=== PATIENT | male | born 1980 | race African-American/Black ===

== ENCOUNTER 2016-09-21 12:53 | Inpatient (IN) ==
[2016-09-21] MEDS ORDERED: SODIUM CHLORIDE 0.9% 1,000 ML IV STA (13:03)
[2016-09-21] MEDS ORDERED: HYDROmorphone 2 MG/1 ML VIAL IV STA ×2 (13:03→14:06)
[2016-09-21] MEDS ORDERED: ONDANSETRON 4 MG/2 ML VIAL IV STA (13:03)
[2016-09-21] MEDS ORDERED: ONDANSETRON 4 MG/2 ML VIAL ONE (13:09)
[2016-09-21] MEDS ORDERED: HYDROmorphone 2 MG/1 ML VIAL ONE ×2 (13:10→14:17)
[2016-09-21 13:26] LABS: Basophils # 0.1 10*3/uL (0.0-0.2); Basophils % 0.3 % (0.0-0.8); Eosinophils % 0.2 % (0.00-10.9); Hemoglobin 12.8 GM/DL (14.0-18.0); Immature Granulocytes % 0.6 %; Immature Granulocytes Absolute 0.09 #; Lymphocytes % 13.1 % (21.2-54.2); Mean Corpuscular HGB Conc 37.8 GM/DL (32-36); Mean Corpuscular Hemoglobin 36 PG (27-34); Mean Corpuscular Volume 95.2 FL (87-102); Mean Platelet Volume 11.3 FL (9.6-12.0); Monocytes # 0.8 10*3/uL (0.11-0.8); Monocytes % 5.3 % (1.7-12.7); Neutrophils # 12.4 10*3/uL (1.4-7.4); Neutrophils % 80.5 % (38.7-73.9); Platelet Count 262 T/CUMM (130-400); Red Blood Count 3.56 MC/CUMM (3.8-5.5); Red Cell Distribution Width 12.1 % (9.3-17.3); White Blood Count 15.5 T/CUMM (4-12)
[2016-09-21 13:27] LABS: Hematocrit 33.9 VOL% (42.0-52.0)
--- NOTE | 2016-09-21 14:09 | CT Report ---
History: Abdominal pain and pelvic pain. Nausea and vomiting Date: 09/21/2016 Study: CT abdomen and pelvis with IV contrast Comparison exam: Noncontrast CT July 24, 2016 Technique: Spiral CT sections were obtained from the lung bases to the pubic symphysis following 100 mL Omnipaque 350 IV. Total DLP measures 1355.2 mGy*cm. The CT exam was performed using one or more of the following dose reduction techniques: Automated exposure control, adjustment of the mA and/or kV according to patient size, or use of iterative reconstruction technique. CT abdomen: There is mild platelike subsegmental atelectasis in the right lower lobe. There is no evidence of pneumoperitoneum. There is no latanya bowel obstruction. There is moderate diffuse fatty infiltration of the liver. There is no focal hepatic mass. There is some equivocal mild peritoneal thickening at the perihepatic level. The spleen, adrenal glands, and kidneys appear normal. There is strandy and hazy inflammatory change in the anterior left pararenal region and anterior right pararenal region. There is some diffuse prominence and indistinctness of the head of the pancreas, with mild perihepatic inflammation. There is no abnormal biliary dilatation. The gallbladder is mildly distended and grossly unremarkable otherwise. There is no aortic aneurysm. There is a small periumbilical hernia containing only fat. The appendix is visualized and appears normal. CT pelvis: There is no soft tissue mass of the pelvis. There is a small fat-containing right inguinal hernia. Impression: Pancreatic enlargement and peripancreatic inflammation compatible with changes of acute pancreatitis. Fatty infiltration of the liver PROCEDURE INTERPRETED AT [facility] DEPARTMENT OF RADIOLOGY Final Report Signed by: Dr. Tonia Price
--- NOTE | 2016-09-21 14:14 | XRay Report ---
History: Abdominal pain. Nausea and vomiting Date: 09/21/2016 Study: Chest x-ray AP portable Comparison exam: August 26, 2016 The cardiac silhouette is upper normal in size. There is no mediastinal mass. The pulmonary vasculature is not engorged. There is no acute pulmonary infiltrate. There is no gross pleural effusion. Osseous structures are unchanged. Impression: No acute cardiopulmonary process compared to the previous study PROCEDURE INTERPRETED AT [facility] [place] DEPARTMENT OF RADIOLOGY Final Report Signed by: Dr. Tonia Price
[2016-09-21 14:18] LABS: Calcium 9.9 MG/DL (8.5-10.1)
[2016-09-21 14:20] LABS: Albumin 4.2 G/DL (3.4-5.0); Osmolality,Calculated 277.2 MOS/KG (273-304)
[2016-09-21 14:33] LABS: Apearance,Urine CLEAR (Clear); Bilirubin,Urine Negative (Negative); Blood, Urine Small mg/dL (Negative); Glucose,Urine (UA) >=500 mg/dL (Negative); Ketones,Urine 80 mg/dL (Negative); Mucus,Urine Occasional /LPF (Occasional); Nitrite,Urine Negative (Negative); Protein,Urine 100 MG/DL; RBC,Urine 1 /HPF (0-4); Urine Color Yellow (Yellow); Urine Specific Gravity 1.051 (1.001-1.035); Urine Urobilinogen < 2.0 EU/DL (0.2-1.0); WBC,Urine 1 /HPF (0-6)
[2016-09-21 14:47] LABS: Bilirubin,Total 0.9 MG/DL (0.2-1.0); Total Protein 8.5 G/DL (6.4-8.3)
--- NOTE | 2016-09-21 15:08 | Emergency Department Note ---
Mac Francisco Brittany, am scribing for, and in the presence of, Russell Renee MD 13:07. Víctor Francisco Doug C, MD, personally performed the services described in this documentation, ascribed by Ruth Watts in my presence, and it is both accurate and complete . Arrival - Arrival Chief Complaint: Abdominal / Flank Pain Stated Complaint: abd pain' Mode of Arrival: Stretcher Limitations: No Limitations Source: Patient Time Seen by Provider: 09/21/16 13:02 - History of Present Illness HPI Narrative: Patient is a 35-year-old black male who presents to the emergency room complaining of abdominal pain for the last 2 days. Patient states his pain is progressively gotten worse and is very reminiscent that he experienced with acute pancreatitis in January 2016. States he only drinks an occasional beer at present. He has not had any fever or chills. Patient states she has been vomiting for the last several days but has not seen any blood in his vomitus and has had no melena. He denies any chest pain or shortness of breath. Onset (ago): week(s) (Started 2 weeks ago) Consistency: intermittent Allergies/Adverse Reactions: Allergies Allergy/AdvReac Type Severity Reaction Status Date / Time No Known Allergies Allergy Verified 09/10/16 07:35 Home Medications: Home Medications Medication Instructions Recorded Confirmed Type Carvedilol [Coreg] 3.125 mg PO BID tablet 03/05/16 09/21/16 Rx Fenofibrate [Tricor] 160 mg PO DAILY 03/28/16 09/21/16 History Metoclopramide Tab [Reglan Tab] 5 mg PO ACHS #40 tablet 08/22/16 09/21/16 Rx Dicyclomine Cap/Tab [Bentyl 20 mg PO QID PRN #20 tablet 08/24/16 09/21/16 Rx Cap/Tab] Ondansetron [Ondansetron Odt] 8 mg PO Q4H PRN #10 tab.rapdis 08/24/16 09/21/16 Rx Albuterol Sulfate [Ventolin HFA] 2 puff INH Q4H PRN 09/10/16 09/21/16 History Citalopram [CeleXA] 40 mg PO BEDTIME 09/10/16 09/21/16 History Divalproex Sodium 500 mg PO BID 09/10/16 09/21/16 History Pantoprazole Tab [Protonix Tab] 40 mg PO DAILY 09/10/16 09/21/16 History dilTIAZem HCl [Cartia XT] 240 mg PO BID 09/10/16 09/21/16 History ALPRAZolam [Xanax] 1 mg PO BID PRN 09/21/16 09/21/16 History Glimepiride 1 mg PO QAM 09/21/16 09/21/16 History Multivitamin with Minerals 1 each PO DAILY 09/21/16 09/21/16 History [Multivitamins with Minerals] Polyethylene Glycol Powder 17 gm PO DAILY 09/21/16 09/21/16 History [Miralax] metFORMIN [Glucophage] 500 mg PO BID 09/21/16 09/21/16 History Review of System - Review of System 12 point system: reviewed and no additional remarkable complaints except as stated - Review of System Constitutional: Absent: fever Respiratory: Present: cough Gastrointestinal: Present: abdominal pain, nausea, vomiting Hematological/Lymphatic: Absent: easy bleeding, easy bruising Medical,Surgical,& Family Hx - Medical History Cardio: History of: Hypertension Neurology: No history of: Seizures Endocrine: History of: Diabetes Mellitus (NIDDM), Dyslipidemia Respiratory: History of: Asthma, Bronchitis Gastrointestinal: History of: Hemorrhoids, Pancreatitis (In January 2016) Musculoskeletal: History of: Back/Neck Problems (back pain) - Surgical History Cardiac Surgeries: Patient Denies: Cardiac Catheterization HEENT Surgeries: Surgical HX of: Tonsilectomy & Adenoidectomy (tonsilectomy "years ago") Abdominal Surgeries: Surgical HX of: Abdominal Surgery (ABD ABSCESS) Additional Surgical History: Tracheostomy - Family History Family History: Reports;: Family Diabetes (mom), Family Hypertension (mom) Denies;: Family Heart Disease - Social History Smoking Status: Current every day smoker Exam Vital Signs: Vital Signs Temperature 96.8 F L 09/21/16 13:01 Pulse Rate 84 09/21/16 14:15 Respiratory Rate 22 09/21/16 14:15 Blood Pressure 131/77 09/21/16 14:15 O2 Sat by Pulse Oximetry 95 09/21/16 14:15 - General General appearance: alert, in distress (Patient appears quite uncomfortable.) - Head Head exam: Present: atraumatic, normocephalic, normal inspection - Eye Eye exam: Present: normal appearance, PERRL, EOMI. Absent: scleral icterus, conjunctival injection, nystagmus, miosis, mydriasis - ENT ENT exam: Present: normal exam, normal oropharynx, mucous membranes moist, normal external ear exam - Neck Neck exam: Present: normal inspection, full ROM, trachea midline. Absent: tenderness, meningismus, lymphadenopathy, thyromegaly - Chest Chest inspection: Present: normal inspection, symmetric chest wall rise. Absent : tenderness, rash, abscess - Respiratory Respiratory exam: Present: normal lung sounds bilaterally. Absent: prolonged expiratory phase, rales, respiratory distress, rhonchi, stridor, wheezes - Cardiovascular Cardiovascular exam: Present: normal rhythm, tachycardia, normal heart sounds. Absent: murmur, rubs, gallop, clicks, JVD - Abdominal Exam Abdominal exam: Present: soft, tenderness (Diffuse abdominal tendnerss), normal bowel sounds. Absent: distention, guarding, rebound, rigidity - Rectal Exam Rectal exam: Present: deferred - Extremities Exam Extremities exam: Present: normal inspection, full ROM, normal capillary refill. Absent: tenderness, pedal edema, joint swelling, calf tenderness - Back Exam Back exam: Present: normal inspection, full ROM. Absent: tenderness, muscle spasm, rashes - Neurological Exam Neurological exam: Present: alert, oriented X3, CN II-XII intact. Absent: motor sensory deficit - Psychiatric Psychiatric exam: Present: normal affect, normal mood. Absent: depressed, agitated, anxious, flat affect, manic - Skin Skin exam: Present: warm, dry, intact, normal color. Absent: rash, cyanosis, diaphoresis, erythema, pallor, mottled Course Course Narrative: Patient's clinical presentation, laboratory radiograph findings were discussed with Nathaniel who is covering the hospitalist service. She will arrange patient be seen in the emergency room and admitted. Results - Labs CBC & BMP: 09/21/16 13:06 09/21/16 13:06 Lab Results: I have reviewed the patients labs Labs: Laboratory Tests 09/21/16 09/21/16 09/21/16 13:03 13:06 13:18 WBC 15.5 H RBC 3.56 L Hgb 12.8 L Hct 33.9 L MCV 95.2 MCH 36 H MCHC 37.8 H RDW 12.1 Plt Count 262 MPV 11.3 Neut % (Auto) 80.5 H Lymph % (Auto) 13.1 L [place] % (Auto) 5.3 Eos % (Auto) 0.2 Baso % (Auto) 0.3 Neut # (Auto) 12.4 H Lymph # (Auto) 2.0 [place] # (Auto) 0.8 Eos # (Auto) 0.0 Baso # (Auto) 0.1 Immature Gran % 0.6 Nucleated RBC % 0.0 Immature Gran # 0.09 Nucleated RBCs # 0.00 Immature Plt Fraction 0.0 POC Creatinine 1.07 POC Estimated GFR (eGFR) > 60 Urine Color Yellow Urine Appearance Clear Urine pH 6.0 Ur Specific [place] 1.051 H Urine Protein 100 Urine Glucose (UA) >=500 Urine Ketones 80 Urine Blood Small Urine Nitrate Negative Urine Bilirubin Negative Urine Urobilinogen < 2.0 H Urine Leukocytes Negative Urine RBC 1 Urine WBC 1 Urine Mucus Occasional Ur Culture Indicated? Not indicated - Diagnostic Findings Procedure: Chest x-ray: report reviewed by me (Nothing acute. ), CT Abdomen and Pelvis: report reviewed by me (Pancreatic enlargement and peripancreatic inflammation compatible with chnages of acute pancreatitis. Fatty infltration of the liver. ) Disposition Clinical Impression: Acute pancreatitis Case discussed with: patient Disposition: Still a Patient Condition: Guarded Time of Disposition: 15:08
--- NOTE | 2016-09-21 15:15 | Hospitalist History & Physical ---
<Christiano Olivares - Last Filed: 09/21/16 15:13> Assessment and Plan - Time spent with patient Time spent with patient: Greater than 30 minutes (1) Acute pancreatitis Status: Acute Assessment and plan: Admit for observation and treatment. N.p.o. IV fluids. Pain medications. Current Visit: Yes (2) Diabetes mellitus Status: Chronic Assessment and plan: Accu-Cheks before meals at bedtime. Sliding scale insulin per protocol. Current Visit: No (3) Hypertension Status: Acute Assessment and plan: Monitor BP. Continue home medications as appropriate Current Visit: No History of Present Illness Chief complaint: abdominal pain History of present illness: Mr. Franco is a 35 year old male with a past medical history significant for hypertension, diabetes mellitus, cocaine abuse, alcoholism, tobacco abuse and medication noncompliance who presents to the emergency room today with complaints of severe abdominal pain 3 days. Patient reports that this pain has been going on for approximately 3-4 weeks as he has been in and out of the emergency room with similar complaints. He states that this pain is located primarily in the epigastric region and radiates throughout the abdomen. It has progressively gotten worse over the last 2-3 days and he rates his pain 10/10. He confirms headache, blurry vision, nausea and vomiting, diarrhea and constipation, decreased appetite. He denies chest pain, palpitations, bright red blood per rectum. Lab work reveals WBC 15.5, hemoglobin 12.8, hematocrit 33.9, sodium 134, BUN 11 , creatinine 1.10, serum glucose 304, total protein 8.5, amylase 80, lipase 1213. UDS is pending. Case been discussed with both Dr. Renee and Dr. Khan, the patient will be admitted to the hospital medicine service for further evaluation and treatment. Patient is a full code. Home medications have been reviewed and reconciled. Home Medications Medication Instructions Recorded Confirmed Type Carvedilol [Coreg] 3.125 mg PO BID tablet 03/05/16 09/21/16 Rx Fenofibrate [Tricor] 160 mg PO DAILY 03/28/16 09/21/16 History Metoclopramide Tab [Reglan Tab] 5 mg PO ACHS #40 tablet 08/22/16 09/21/16 Rx Dicyclomine Cap/Tab [Bentyl 20 mg PO QID PRN #20 tablet 08/24/16 09/21/16 Rx Cap/Tab] Ondansetron [Ondansetron Odt] 8 mg PO Q4H PRN #10 tab.rapdis 08/24/16 09/21/16 Rx Albuterol Sulfate [Ventolin HFA] 2 puff INH Q4H PRN 09/10/16 09/21/16 History Citalopram [CeleXA] 40 mg PO BEDTIME 09/10/16 09/21/16 History Divalproex Sodium 500 mg PO BID 09/10/16 09/21/16 History Pantoprazole Tab [Protonix Tab] 40 mg PO DAILY 09/10/16 09/21/16 History dilTIAZem HCl [Cartia XT] 240 mg PO BID 09/10/16 09/21/16 History ALPRAZolam [Xanax] 1 mg PO BID PRN 09/21/16 09/21/16 History Glimepiride 1 mg PO QAM 09/21/16 09/21/16 History Multivitamin with Minerals 1 each PO DAILY 09/21/16 09/21/16 History [Multivitamins with Minerals] Polyethylene Glycol Powder 17 gm PO DAILY 09/21/16 09/21/16 History [Miralax] metFORMIN [Glucophage] 500 mg PO BID 09/21/16 09/21/16 History Allergies Allergy/AdvReac Type Severity Reaction Status Date / Time No Known Allergies Allergy Verified 09/10/16 07:35 Medical,Surgical,& Family Hx - Medical History Cardio: History of: Hypertension Neurology: No history of: Seizures Endocrine: History of: Diabetes Mellitus (NIDDM), Dyslipidemia Respiratory: History of: Asthma, Bronchitis Gastrointestinal: History of: Hemorrhoids, Pancreatitis (In January 2016) Musculoskeletal: History of: Back/Neck Problems (back pain) - Surgical History Cardiac Surgeries: Patient Denies: Cardiac Catheterization HEENT Surgeries: Surgical HX of: Tonsilectomy & Adenoidectomy (tonsilectomy "years ago") Abdominal Surgeries: Surgical HX of: Abdominal Surgery (ABD ABSCESS) - Family History Family History: Reports;: Family Diabetes (mom), Family Hypertension (mom) Denies;: Family Heart Disease - Social History Smoking Status: Current every day smoker Have you smoked in the last 12 months: Yes Time spent discussing smoking cessation with patient: 3 to 10 minutes Frequency of Alcohol Use: Frequently Type of Drug Use: Unknown, Cocaine Marital Status: Single Lives With:: Alone Functional capacity: independent ambulation 12 point system: reviewed and no additional remarkable complaints except as stated Exam - Constitutional Vitals: Period Temp Pulse Resp BP Sys/Molina Pulse Ox Last 24 Hr 96.8 F-96.8 F 84-96 18-22 131-158/77-98 95-98 Exam: General appearance: overweight, moderate distress - Head Head exam: Present: normocephalic, atraumatic - Eye Eye exam: Present: EOMI. Absent: conjunctival injection, nystagmus Pupils: Present: HELEN, normal accommodation - ENT ENT exam: Present: normal exam, normal external ear exam - Neck Neck exam: Present: normal inspection. Absent: lymphadenopathy, tenderness, thyromegaly - Respiratory Respiratory exam: Present: clear to auscultation bilaterally. Absent: rales, rhonchi, wheezes - Cardiovascular Cardiovascular exam: Present: regular rate and rhythm. Absent: carotid bruit, gallop, rubs - GI/Abdominal GI/Abdominal exam: Present: normal bowel sounds, vertical scar from abdominal surgery, ventral hernia. Absent: ascites, distended, mass - Extremities Exam Extremities exam: Present: normal inspection, normal capillary refill. Absent: edema - Back Exam Back exam: Absent: CVA tenderness (L), CVA tenderness (R) - Neurological Exam Neurological exam: Present: alert, oriented X3, CN II-XII intact, reflexes normal - Psychiatric Psychiatric exam: Present: agitated - Skin Skin exam: Present: normal color, warm, dry Results - Labs CBC & BMP: 09/21/16 13:06 09/21/16 13:06 Lab Results: I have reviewed the past 24 hour labs - Diagnostic Findings Procedure: Chest x-ray: image reviewed by me, report reviewed by me ( Unremarkable), CT Abdomen and Pelvis: image reviewed by me, report reviewed by me (Pancreatic enlargement and peripancreatic inflammation) <Carolyn Khan - Last Filed: 09/21/16 16:51> History of Present Illness History of present illness: Mr. Franco is a 35 year old male with multiplke medical issues now admitted for abdominal pain and pancreatitis. IVF IV pain meds, antiemetics NPO USS abd Lipid profile Banana bag GI and DVT prophylaxis BC Aic and accu cheks Exam - Constitutional Vitals: Period Temp Pulse Resp BP Sys/Molina Pulse Ox Last 24 Hr 96.2 F-96.8 F 84-96 18-22 94-158/68-98 95-98 Results - Labs CBC & BMP: 09/21/16 13:06 09/21/16 13:06
[2016-09-21] MEDS ORDERED: ACETAMINOPHEN 325 MG TABLET PO PRN (15:37)
[2016-09-21] MEDS ORDERED: ONDANSETRON 4 MG/2 ML VIAL IV PRN (15:37)
[2016-09-21] MEDS ORDERED: DEXTROSE 50% 25 GM/50 ML SYRINGE IV PRN (15:48)
[2016-09-21] MEDS ORDERED: GLUCAGON 1 MG VIAL IM PRN (15:48)
[2016-09-21 15:59] LABS: Barbiturates Screen,Urine Negative (Negative); Benzodiazepines Screen,Urine Negative (Negative); Cannabinoid Screen,Urine Positive (Negative); Opiate Screen,Urine Positive (Negative); Phencyclidine Screen,Urine Negative (Negative)
[2016-09-21 16:49] LABS: Risk Ratio 7.28; VLDL CHOLESTEROL 747.2 MG/DL
[2016-09-21] MEDS: PANTOPRAZOLE 40 MG VIAL IV SCH (16:58)
[2016-09-21] MEDS: SODIUM CHLORIDE 0.9% 1,000 ML IV SCH (16:58)
[2016-09-21] MEDS ORDERED: FOLIC ACID 5 MG/1 ML VIAL IV SCH (17:00)
[2016-09-21] MEDS ORDERED: THIAMINE 200 MG/2 ML VIAL IV SCH (17:00)
[2016-09-21] MEDS: ENOXAPARIN 40 MG/0.4 ML SYRINGE SUBCUT SCH (17:43)
[2016-09-21] MEDS: INSULIN LISPRO 100 UNIT/ML SUBCUT SCH (18:16)
[2016-09-21] MEDS: MULTIVITAMIN INJ 10 ML, FOLIC ACID INJ 1 MG, THIAMINE INJ 100 MG in SODIUM CHLORIDE 0.9... IV SCH (18:44)
--- NOTE | 2016-09-21 19:14 | Ultrasound Report ---
Exam: US right upper quadrant Date:09/21/2016 4:48 PM Comparison: No previous similar Indication: Abdominal pain Real-time ultrasound images are captured and archived. The pancreas is enlarged and heterogeneous such as that which can be seen with pancreatitis. The gallbladder is normal in appearance without gallstones or gallbladder wall thickening. There is no abnormal biliary dilatation. The common bile duct measures 3.6 mm diameter. The liver is mildly enlarged in a diffuse fashion and contains some diffuse increased parenchymal echogenicity compatible fatty infiltration. There is no focal hepatic mass. The right kidney appears normal. ORGAN MEASUREMENTS Liver Length:20.2 cm CBD: 4 mm Right kidney: Length:12.9 cm Width:7 cm AP:6.6 cm Impression: Diffuse pancreatic enlargement and parenchymal heterogeneity compatible with changes of pancreatitis. No evidence of cholelithiasis Hepatomegaly and mild diffuse fatty infiltration of the liver PROCEDURE INTERPRETED AT [facility] DEPARTMENT OF RADIOLOGY Final Report Signed by: Dr. Tonia Price
[2016-09-21] MEDS ORDERED: HYDROmorphone 2 MG/1 ML VIAL IV ONE (20:49)
[2016-09-22] MEDS: INSULIN LISPRO 100 UNIT/ML SUBCUT SCH ×7 (00:11→21:40)
[2016-09-22] MEDS: SODIUM CHLORIDE 0.9% 1,000 ML IV SCH ×5 (04:23→15:33)
[2016-09-22 04:50] LABS: Basophils % 0.1 % (0.0-0.8); Hematocrit 36.7 VOL% (42.0-52.0); Hemoglobin 13.2 GM/DL (14.0-18.0); Immature Granulocytes % 0.4 %; Immature Granulocytes Absolute 0.06 #; Lymphocytes % 7.2 % (21.2-54.2); Mean Corpuscular Hemoglobin 35 PG (27-34); Mean Corpuscular Volume 97.9 FL (87-102); Mean Platelet Volume 11.6 FL (9.6-12.0); Monocytes # 0.6 10*3/uL (0.11-0.8); Monocytes % 4.6 % (1.7-12.7); Neutrophils # 11.7 10*3/uL (1.4-7.4); Neutrophils % 87.7 % (38.7-73.9); Platelet Count 236 T/CUMM (130-400); Red Blood Count 3.75 MC/CUMM (3.8-5.5); Red Cell Distribution Width 12.3 % (9.3-17.3); White Blood Count 13.4 T/CUMM (4-12)
[2016-09-22 05:20] LABS: Calcium 7.8 MG/DL (8.5-10.1); Potassium 4.5 MMOL/L (3.5-5.1)
[2016-09-22] MEDS ORDERED: HYDROmorphone 2 MG/1 ML VIAL IV PRN (05:56)
--- NOTE | 2016-09-22 06:17 | Event Note ---
Called by staff noted that patient is complaining of abdominal pain and has laid on the floor because of pain. He was given dose of Dilaudid last night for pain. He had been on hydrocodone APAP combination. He is stable hemodynamically awake and alert. Noted abdominal with the multiple scars and is soft on palpation palpable liver right upper quadrant. Patient reported tenderness on palpation but there is no guarding or rigidity bowel sounds present. Lipase level noted more than 3000 this morning. patient is already on IV fluid at 200 cc/h. I will change hydrocodone p.o. to Dilaudid 1 mg every 4 hours as needed along with the Zofran. Patient want to drink Sprite. I advised him not to but okay for the ice chips to wet the oral mucosa.
[2016-09-22] MEDS: hydrALAZINE 20 MG/1 ML VIAL IV PRN ×2 (09:21→14:28)
[2016-09-22] MEDS: LORazepam 2 MG/1 ML VIAL IV PRN ×3 (09:23→18:41)
[2016-09-22] MEDS: PANTOPRAZOLE 40 MG VIAL IV SCH (09:59)
--- NOTE | 2016-09-22 10:09 | Hospitalist Progress Note ---
Assessment and Plan (1) Acute pancreatitis Status: Acute Assessment and plan: CT abd showed Pancreatic enlargement and peripancreatic inflammation compatible with changes of acute pancreatitis. Fatty infiltration of the liver Abd Uss showed Diffuse pancreatic enlargement and parenchymal heterogeneity compatible with changes of pancreatitis.No evidence of cholelithiasis. Hepatomegaly and mild diffuse fatty infiltration of the liver Lipids showed triglycerides of 3736, CL-313, LDL-117 and HDL-43 Lipase has increased from 1213 to 3018. Plan Continue with NPO IV pain meds, antiemetics, IVF Start Lipitor and tricor GI consult Hepatitis panel PPI Follow BC Continue banana bag Lipase amylase in am Current Visit: No (2) Diabetes mellitus Status: Chronic Assessment and plan: HbA1c- 10.1 Plan: continue with current regime Current Visit: No (3) Essential hypertension Status: Chronic Assessment and plan: will start on IV hydralazine prn Current Visit: No (4) Drug abuse Status: Acute Assessment and plan: UDS positive for marijuana and opiates Patient has been counseled DT prophylaxis with IV ativan prn Nicotine patch Current Visit: Yes Hospitalist: Subjective Interval history: Patient was seen sitting up on a chair, complaining of pain and dehydration.His lipase has increased to 3018 from 1213. Abdominal USS showed pancreatitis, hepatomegaly and fatty infiltrate. Exam - Constitutional Vitals: Period Temp Pulse Resp BP Sys/Molina Pulse Ox Last 24 Hr 96.2 F-97.6 F 84-98 18-24 94-172/68-100 94-98 General appearance: no acute distress - Head Head exam: Present: normal inspection - Respiratory Respiratory exam: Present: clear to auscultation bilaterally - Cardiovascular Cardiovascular exam: Present: regular rate and rhythm - GI/Abdominal GI/Abdominal exam: Present: tenderness - Extremities Exam Extremities exam: Present: normal inspection - Neurological Exam Neurological exam: Present: alert, oriented X3 Results - Labs CBC & BMP: 09/22/16 04:39 09/22/16 04:39 Lab Results: I have reviewed the past 24 hour labs Quality Measures - Stroke Symptom Onset Unknown: No
[2016-09-22] MEDS ORDERED: NICOTINE 21 MG/24 HR PATCH TRANSDERM PRN (10:20)
[2016-09-22] MEDS: HYDROmorphone 2 MG/1 ML VIAL IV PRN ×4 (10:38→22:18)
[2016-09-22] MEDS: FENOFIBRATE 160 MG TABLET PO SCH (10:38)
[2016-09-22] MEDS ORDERED: SODIUM CHLORIDE 0.9% 2,000 ML IV ONE (15:39)
--- NOTE | 2016-09-22 15:44 | Gastrointestinal Consult Note ---
Assessment and Plan - Time spent with patient Time spent with patient: Greater than 30 minutes (1) Recurrent acute pancreatitis Status: Acute Current Visit: Yes (2) Hypertriglyceridemia Status: Inactive Assessment and plan: PLEASE NOTE -- automatic citation of patient information is unavoidable in this electronic note. I have made a reasonable effort to review the information cited , but it is not a part of my evaluation, impression, or recommendation unless specifically discussed in the dictated text that follows. As well, voice recognition software was used in the creation of this clinical note. Reasonable effort was made to identify and correct gross errors. Despite proofreading, errors in hose builder may be present, including nonsense verbiage at times. If you encounter such an error, please contact me at [phone] for discussion and correction. -- Dr. Uribe Chief complaint/Consult Question: Acute pancreatitis Consult requested by: Erin History of present illness: This is a new patient, a 35-year-old man admitted with recurrent acute pancreatitis, associated with nausea vomiting and midepigastric abdominal pain radiating diffusely to the abdomen into the back. Associated with decreased appetite. Last admitted in January 2016 with severe pancreatitis, acute hemorrhage, requiring open drainage and long-term wound VAC per reports. Did not see any evidence of necrosectomy. Patient states since that time he has lost an additional 30 pounds, due to decrease in appetite. Denies early satiety or jaundice. States he has had no liquor since discharge, outside of small taste which turned him off completely, and a single beer every 3-4 weeks, For which he also does not have a taste. Reportedly taking his TriCor since prior discharge at which time he was also found to have hypertriglyceridemia. Thinks some people in his family may have had cancer but he does not know, no other history of pancreatic disease known in the family although history obviously limited. Denies nausea, emesis, melena, hematochezia , diarrhea. Last bowel movement was 2 days ago. Deep breaths induced worsening back pain. CT scan consistent with inflammation of the pancreas. Ultrasound negative for gallstones or dilation. Chest x-ray without acute cardiopulmonary process GI review of systems included: heartburn, regurgitation, early satiety, dysphagia, odynophagia, abdominal pain, nausea, vomiting, hematemesis, weight loss, weight gain, fever, chills, fatigue, decreased appetite, diarrhea, constipation, hematochezia, melena, bloating, malodorous flatus, anal pain, or NSAID use, and was negative except as noted above. REVIEW OF SYSTEMS: Complete other review of systems negative except as noted in the HPI Outpatient medications: Personally reviewed, Protonix 40 mg p.o. daily Metformin 500 mg twice daily Multivitamin with minerals daily Glimepiride 1 mg p.o. every morning TriCor 160 mg p.o. daily Divalproex sodium 500 mg p.o. twice daily Celexa 40 milligrams p.o. bedtime Coreg 3.125 mg p.o. twice daily Xanax 1 mg p.o. twice daily as needed next line diltiazem 240 mg p.o. twice daily MiraLAX daily Zofran as needed Reglan 5 mg p.o. before every meal NOT SEEN IN PATIENT MEDICATION BOTTLES and pt stats otherwise not taking, although not familiar with this med Bentyl 20 mg p.o. 4 times daily as needed Albuterol as needed Inpatient medications: Personally reviewed Normal saline at 200 mL/h Tylenol as needed Lipitor 20 mg p.o. bedtime Lovenox DVT prophylaxis TriCor 160 mg daily Glucagon as needed Hydralazine as needed Dilaudid as needed Ativan as needed Multivitamin with mineral and a banana bag daily Nicotine patch Zofran Protonix 40 mg IV daily Past Medical History: Personally reviewed Chronic back pain, cocaine abuse, diabetes Social history: Patient denies any liquor or beer consumption, stating he has approximately 1 beer every 3-4 weeks, and no hard liquor since discharge from previous hospitalization (except for single time he retried it, decided he no longer have the taste for it) Family history: Limited family history, patient states he really does not know about his family, but there could have been some cancers. PHYSICAL EXAMINATION: CONSTITUTIONAL: Vital signs reviewed as documented above. In mild distress due to pain. Nontoxic-appearing. EYES: Anicteric conjunctiva. Extra-ocular movements are intact and symmetric. EARS: Able to hear speech at conversational volume level, no external trauma/ masses. MOUTH: No oral/mouth lesions or ulcers. NECK: No masses or crepitus. Thyroid is of normal size and symmetric. HEART: Regular rate, regular rhythm LUNGS: There to auscultation bilaterally. No increased work of breathing or accessory muscle use. GI/ABDOMEN: Nonobese abdomen, soft, distended but compressible, significant scars seen in lower abdominal midline, right abdomen, left upper quadrant, which patient states are from prior pancreatitis, with soft nontender reducible hernias. Patient has diffuse abdominal pain, but mostly in the upper abdomen SKIN: No rash on face, arms, or hands. No palpable lesions MUSCULOSKELETAL: Laying in bed and able to move efficiently. Muscle tone appears normal without any abnormal movements. PSYCH: Normal affect. Alert and oriented to person, place, and time. Laboratory: Personally reviewed Leukocytosis improved from 15.5-13.4 Hemoglobin stable 12.8-13.2 Platelets normal Neutrophilic predominance Stable BNP, anion gap of 20, glucose greater than 300, A1c of 10.1 Liver associated enzymesAST 29, ALT 53, alk phos 87, total bilirubin 0.9, total protein 8.5, albumin 4.2, was slightly elevated protein to albumin ratio. Triglycerides 3736, total cholesterol 313 Lipase 1200, 3000 UA abnormal with significant glucose, small blood, ketones, negative leukocytes Tox screen positive for opiates and cannabinoids Radiology: Personally reviewed reports and images CT abdomen dated 09/21/2016. No pneumoperitoneum. No latanya bowel obstruction. Diffuse fatty liver. No focal hepatic mass. Mild peritoneal thickening at the perihepatic level. Stranding and hazy inflammatory change in the anterior left pararenal region and anterior right perirenal region. Some diffuse prominence and indistinctness of the head of the pancreas with mild perihepatic inflammation. No abnormal biliary dilatation. Gallbladder is mildly distended and grossly unremarkable. Small periumbilical hernia containing only fat. Appendix appears normal. Right upper quadrant ultrasound dated 09/21/2016. Pancreas is enlarged and heterogenous consistent with pancreatitis. Gallbladder is normal in appearance without gallstones or gallbladder wall thickening. No abnormal biliary dilatation. CBD 3.6 mm. Mildly enlarged and liver with some increased echogenicity compatible with fatty infiltration. No focal mass. Right kidney appears normal. Assessments: #Acute recurrent pancreatitis. Imaging and history are most consistent with caused by hypertriglyceridemia, but patient's Depakote is also associated with potential pancreatitis. Upon full medication review there do not appear to be other medications that would cause pancreatitis. No evidence of stones, or alcohol. Imaging appears similar to prior, with bulkier inflammation of the head of the pancreas, and while pancreatic cancer would be unusual at this age, family history is unclear. Patient is also potentially at risk for autoimmune disease causing pancreatitis in this territory. Patient reporting good appetite , no nausea or vomiting, and tolerating sips and chips well. Opiate and cannabinoid abuse are unlikely to cause any level of ischemia, cocaine was negative. #Hypertriglyceridemia: chronic, unchanged with current dose of tricor #Other specified counseling -- The patient was seen for greater than 30 minutes. The patient was counseled for greater than 50% of this time regarding differential diagnosis, likely diagnosis, diagnostic and therapeutic alternatives, risks/benefits/alternatives of medications and procedures, and plan of care generally. The patient expressed understanding and wishes to proceed. Recommendations: -Continue IV fluids at 200-300 mils, I will give a 2 L bolus at this time for patient's persistent thirst and tachycardia -would increase trigycleride treatment with niacinIR [id number] mg /day divided BID-TID, starting dose -Continue to hold Depakote, primary team to consider alternative medication for this indication -More aggressive glucose control with A1c greater than 10 as well as persistent glucose greater than 300 during hospital stay, avoid diabetic medications associated with pancreatitis. Defer to primary provider. -Advance to clear liquid diet, and monitor closely for tolerance. Early refeeding can help prevent bacterial translocation and sepsis which is of particular importance with acute pancreatitis, but high chance of ileus as well. Use patient guided symptoms for best direction. -IgG4 level, to evaluate for potential causes of autoimmune pancreatitisordered Marli Uribe MD, MPH [employer]AFF TEACHERS AIDE Current Visit: No History of Present Illness History of present illness: Mr. Franco is a 35 year old male Home Medications Medication Instructions Recorded Confirmed Type Carvedilol [Coreg] 3.125 mg PO BID tablet 03/05/16 09/21/16 Rx Fenofibrate [Tricor] 160 mg PO DAILY 03/28/16 09/21/16 History Metoclopramide Tab [Reglan Tab] 5 mg PO ACHS #40 tablet 08/22/16 09/21/16 Rx Dicyclomine Cap/Tab [Bentyl 20 mg PO QID PRN #20 tablet 08/24/16 09/21/16 Rx Cap/Tab] Ondansetron [Ondansetron Odt] 8 mg PO Q4H PRN #10 tab.rapdis 08/24/16 09/21/16 Rx Albuterol Sulfate [Ventolin HFA] 2 puff INH Q4H PRN 09/10/16 09/21/16 History Citalopram [CeleXA] 40 mg PO BEDTIME 09/10/16 09/21/16 History Divalproex Sodium 500 mg PO BID 09/10/16 09/21/16 History Pantoprazole Tab [Protonix Tab] 40 mg PO DAILY 09/10/16 09/21/16 History dilTIAZem HCl [Cartia XT] 240 mg PO BID 09/10/16 09/21/16 History ALPRAZolam [Xanax] 1 mg PO BID PRN 09/21/16 09/21/16 History Glimepiride 1 mg PO QAM 09/21/16 09/21/16 History Multivitamin with Minerals 1 each PO DAILY 09/21/16 09/21/16 History [Multivitamins with Minerals] Polyethylene Glycol Powder 17 gm PO DAILY 09/21/16 09/21/16 History [Miralax] metFORMIN [Glucophage] 500 mg PO BID 09/21/16 09/21/16 History Allergies Allergy/AdvReac Type Severity Reaction Status Date / Time No Known Allergies Allergy Verified 09/10/16 07:35 Medical,Surgical,& Family Hx - Medical History Cardio: History of: Hypertension Neurology: No history of: Seizures Endocrine: History of: Diabetes Mellitus (NIDDM), Dyslipidemia Respiratory: History of: Asthma, Bronchitis Gastrointestinal: History of: Hemorrhoids, Pancreatitis (In January 2016) Musculoskeletal: History of: Back/Neck Problems (back pain) - Surgical History Cardiac Surgeries: Patient Denies: Cardiac Catheterization HEENT Surgeries: Surgical HX of: Tonsilectomy & Adenoidectomy (tonsilectomy "years ago") Abdominal Surgeries: Surgical HX of: Abdominal Surgery (ABD ABSCESS) - Family History Family History: Reports;: Family Diabetes (mom), Family Hypertension (mom) Denies;: Family Heart Disease - Social History Smoking Status: Current every day smoker Frequency of Alcohol Use: Frequently Type of Drug Use: Unknown, Cocaine Exam - Constitutional Vitals: Period Temp Pulse Resp BP Sys/Molina Pulse Ox Last 24 Hr 96.2 F-98.4 F 92-110 20-24 94-172/68-100 94-97 Results - Labs CBC & BMP: 09/22/16 04:39 09/22/16 04:39 Quality Measures - Stroke Symptom Onset Unknown: No
[2016-09-22] MEDS: MULTIVITAMIN INJ 10 ML, FOLIC ACID INJ 1 MG, THIAMINE INJ 100 MG in SODIUM CHLORIDE 0.9... IV SCH (18:41)
[2016-09-22] MEDS: ENOXAPARIN 40 MG/0.4 ML SYRINGE SUBCUT SCH (18:41)
[2016-09-22] MEDS ORDERED: ATORVASTATIN 20 MG TABLET PO SCH (21:00)
[2016-09-23] MEDS: SODIUM CHLORIDE 0.9% 1,000 ML IV SCH (01:04)
[2016-09-23] MEDS: INSULIN LISPRO 100 UNIT/ML SUBCUT SCH ×5 (01:22→16:56)
[2016-09-23 06:04] LABS: Basophils % 0.3 % (0.0-0.8); Eosinophils % 0.2 % (0.00-10.9); Hematocrit 29.4 VOL% (42.0-52.0); Hemoglobin 10.1 GM/DL (14.0-18.0); Immature Granulocytes % 0.3 %; Immature Granulocytes Absolute 0.02 #; Lymphocytes # 1.1 10*3/uL (1.4-4.0); Mean Corpuscular HGB Conc 34.4 GM/DL (32-36); Mean Corpuscular Hemoglobin 34 PG (27-34); Mean Corpuscular Volume 97.7 FL (87-102); Mean Platelet Volume 11.9 FL (9.6-12.0); Monocytes # 0.5 10*3/uL (0.11-0.8); Neutrophils % 76.2 % (38.7-73.9); Platelet Count 209 T/CUMM (130-400); Red Blood Count 3.01 MC/CUMM (3.8-5.5); Red Cell Distribution Width 12.7 % (9.3-17.3); White Blood Count 6.6 T/CUMM (4-12)
[2016-09-23 06:33] LABS: Giant Platelets Few; Platelet Estimate Adequate
[2016-09-23 06:34] LABS: Microcytosis Slight
[2016-09-23 06:45] LABS: Albumin 2.7 G/DL (3.4-5.0); Calcium 8.3 MG/DL (8.5-10.1); Osmolality,Calculated 281.7 MOS/KG (273-304); Potassium 3.9 MMOL/L (3.5-5.1); Total Protein 6.1 G/DL (6.4-8.3)
[2016-09-23] MEDS: HYDROmorphone 2 MG/1 ML VIAL IV PRN ×3 (08:59→21:57)
[2016-09-23] MEDS: FENOFIBRATE 160 MG TABLET PO SCH (09:03)
[2016-09-23] MEDS: PANTOPRAZOLE 40 MG VIAL IV SCH (09:03)
--- NOTE | 2016-09-23 09:40 | Hospitalist Progress Note ---
Assessment and Plan (1) Acute pancreatitis Status: Acute Assessment and plan: CT abd showed Pancreatic enlargement and peripancreatic inflammation compatible with changes of acute pancreatitis. Fatty infiltration of the liver Abd Uss showed Diffuse pancreatic enlargement and parenchymal heterogeneity compatible with changes of pancreatitis.No evidence of cholelithiasis. Hepatomegaly and mild diffuse fatty infiltration of the liver Lipids showed triglycerides of 3736, CL-313, LDL-117 and HDL-43 Lipase has decreased to 837.BC-negative Plan Continue with clear liquids IV pain meds, antiemetics, IVF, banana bag continue with high intensity Lipitor and tricor Follow GI consult Hepatitis panel PPI Lipase amylase in am Current Visit: No (2) Diabetes mellitus Status: Chronic Assessment and plan: HbA1c- 10.1 Plan: Start lantus 20units qhs, continue with SSC, follow response. DM teaching Current Visit: No (3) Essential hypertension Status: Chronic Assessment and plan: will resume home meds,continue IV hydralazine prn Current Visit: No (4) Drug abuse Status: Acute Assessment and plan: UDS positive for marijuana and opiates Patient has been counseled Continue with DT prophylaxis with IV ativan prn Nicotine patch Current Visit: Yes (5) Hypertriglyceridemia Status: Inactive Assessment and plan: continue with high intensity Lipitor and Fenofibrate. Niacin will worsen glucose tolerance in this poorly controlled diabetic patient Low cholesterol diet. Current Visit: No (6) History of seizure Status: Acute Assessment and plan: will get depakote level and resume home dose. Current Visit: Yes Hospitalist: Subjective Interval history: Patient is still complaining about abdominal pain. He had an episode of nausea and vomiting this morning.His Lipase is 837 today. Exam - Constitutional Vitals: Period Temp Pulse Resp BP Sys/Molina Pulse Ox Last 24 Hr 97.1 F-98.4 F 22-134 18-24 148-164/74-97 95-98 General appearance: no acute distress - Head Head exam: Present: normal inspection - Respiratory Respiratory exam: Present: clear to auscultation bilaterally - Cardiovascular Cardiovascular exam: Present: regular rate and rhythm - GI/Abdominal GI/Abdominal exam: Present: normal bowel sounds, tenderness - Extremities Exam Extremities exam: Present: normal inspection - Neurological Exam Neurological exam: Present: alert, oriented X3 Results - Labs CBC & BMP: 09/23/16 05:18 09/23/16 05:18 Lab Results: I have reviewed the past 24 hour labs Quality Measures - Stroke Symptom Onset Unknown: No
[2016-09-23] MEDS: DILTIAZEM CD 240 MG CAPSULE PO SCH ×2 (10:47→21:38)
[2016-09-23] MEDS: CARVEDILOL 3.125 MG TABLET PO SCH ×2 (10:50→16:56)
[2016-09-23] MEDS: DIVALPROEX 500 MG TABLET PO SCH ×2 (10:50→21:38)
--- NOTE | 2016-09-23 11:04 | Gastrointestinal Progress Note ---
<Dottie Chambers - Last Filed: 09/23/16 10:58> Assessment and Plan (1) Acute pancreatitis Status: Acute Assessment and plan: 09/23-Hx of complicated pancreatitis in the past now with reoccurring episode. Lipase levels trending downward. Pain controlled with varying episodes of nausea and vomiting. Clear liquids diet has been initiated. Continue to monitor at this time. Mirilax prn. Plan and addendum to follow by Dr Marks. Current Visit: No Gastroenterology - PN: Subj Interval history: CC: Pancreatitis Pt is seen awake and alert lying in bed. States he is feeling about the same. He has had some continued abdominal pain with episodes of nausea and vomiting. Lipase is at 837 today, down from 3000 yesterday. WBC are down as well and he is afebrile. Abdomen is soft, tender to palpation. He was noted on admission to have evidence of acute pancreatitis on CT and US. He has a history of this in the past with decompressive laparotomy for abdominal compartment syndrome as well as renal and respiratory failure in January of this year. He states that he has been doing better until this episode. He states that his PCP took him off of his diabetic medications in the past few months however was found to have significantly elevated A1C on admission at10.1. Pt states he is no longer drinking other than "an occasional beer". States this episodes feels much like the one in the past. Abdomen is soft, nontender. He has had clear liquids restarted and states he is tolerating small amounts of these. Pt has not had a bowel movement in 3 days however reassured him he has not been eating and has had multiple episodes of vomiting over this time. Will give Mirilax prn as pt feels he needs this. ROS: Denies SOB or chest pain Exam (Progress Note) - Constitutional Vitals: Period Temp Pulse Resp BP Sys/Molina Pulse Ox Last 24 Hr 97.1 F-98.4 F 22-134 18-24 123-164/71-97 95-98 General appearance: normal weight, no acute distress - Head Head exam: Present: normal inspection, normocephalic - Eye Eye exam: Present: other (lids and conjunctiva unremarkable). Absent: scleral icterus - ENT ENT exam: Present: normal exam, normal oropharynx - Neck Neck exam: Present: normal inspection - Respiratory Respiratory exam: Present: clear to auscultation bilaterally. Absent: rales, rhonchi, wheezes - Cardiovascular Cardiovascular exam: Present: regular rate and rhythm. Absent: diastolic murmur , JVD, systolic murmur - GI/Abdominal GI/Abdominal exam: Present: normal bowel sounds, soft. Absent: ascites, distended, mass, organomegaly, tenderness - Extremities Exam Extremities exam: Present: normal inspection, full ROM - Back Exam Back exam: Present: normal inspection - Neurological Exam Neurological exam: Present: alert, oriented X3 - Psychiatric Psychiatric exam: Present: normal affect, normal mood - Skin Skin exam: Present: normal color, warm, dry Results - Labs CBC & BMP: 09/23/16 05:18 09/23/16 05:18 Lab Results: I have reviewed the past 24 hour labs <Jerrod Price - Last Filed: 09/23/16 18:43> Exam (Progress Note) - Constitutional Vitals: Period Temp Pulse Resp BP Sys/Molina Pulse Ox Last 24 Hr 97.1 F-98.9 F 22-129 18-22 123-164/71-97 96-98 Results - Labs CBC & BMP: 09/23/16 05:18 09/23/16 05:18
[2016-09-23] MEDS ORDERED: POLYETHYLENE GLYCOL POWDER 17 GM PACK PO PRN (11:06)
[2016-09-23 11:23] LABS: Hepatitis A Ab IgM Quant 0.14 Index; Hepatitis A Ab IgM Result Negative (Negative); Hepatitis B Core IgM Quant < 0.05 Index; Hepatitis B Core IgM Result Negative (Negative); Hepatitis C Virus Ab Quant 0.17 Index; Hepatitis C Virus Ab Result Negative (Negative)
[2016-09-23 11:48] LABS: Hepatitis B Surface Ag Quant 0.59 Index; Hepatitis B Surface Ag Result Negative (Negative)
[2016-09-23] MEDS: ALPRAZolam 0.5 MG TABLET PO PRN (12:39)
[2016-09-23] MEDS: FOLIC ACID IV SCH ×2 (14:48→19:48)
[2016-09-23] MEDS: MULTIVITAMIN IV SCH ×2 (14:48→19:48)
[2016-09-23] MEDS: [UNRECOGNIZED DRUG - OTHER] IV SCH ×2 (14:48→19:48)
[2016-09-23] MEDS ORDERED: INSULIN GLARGINE 100 UNIT/ML SUBCUT SCH (21:00)
[2016-09-23] MEDS: ATORVASTATIN 40 MG TABLET PO SCH (21:38)
[2016-09-23] MEDS: ENOXAPARIN 40 MG/0.4 ML SYRINGE SUBCUT SCH (21:39)
[2016-09-24] MEDS: INSULIN LISPRO 100 UNIT/ML SUBCUT SCH ×7 (01:34→22:13)
[2016-09-24] MEDS: MULTIVITAMIN IV SCH ×3 (01:43→22:18)
[2016-09-24] MEDS: [UNRECOGNIZED DRUG - OTHER] IV SCH ×3 (01:43→22:18)
[2016-09-24] MEDS: FOLIC ACID IV SCH ×3 (01:43→22:18)
[2016-09-24] MEDS: LORazepam 2 MG/1 ML VIAL IV PRN (03:08)
[2016-09-24 05:46] LABS: Basophils % 0.3 % (0.0-0.8); Eosinophils # 0.1 10*3/uL (0.0-0.87); Eosinophils % 0.9 % (0.00-10.9); Hematocrit 22.6 VOL% (42.0-52.0); Hemoglobin 7.6 GM/DL (14.0-18.0); Immature Granulocytes % 0.4 %; Immature Granulocytes Absolute 0.03 #; Lymphocytes # 1.8 10*3/uL (1.4-4.0); Lymphocytes % 25.2 % (21.2-54.2); Mean Corpuscular HGB Conc 33.6 GM/DL (32-36); Mean Corpuscular Hemoglobin 33 PG (27-34); Mean Corpuscular Volume 99.1 FL (87-102); Monocytes # 0.5 10*3/uL (0.11-0.8); Monocytes % 7.1 % (1.7-12.7); Neutrophils # 4.7 10*3/uL (1.4-7.4); Neutrophils % 66.1 % (38.7-73.9); Platelet Count 189 T/CUMM (130-400); Red Blood Count 2.28 MC/CUMM (3.8-5.5); Red Cell Distribution Width 12.5 % (9.3-17.3)
[2016-09-24 06:16] LABS: Microcytosis Slight; Tear Drop Cells Slight
[2016-09-24 06:17] LABS: Hypochromasia Slight; Platelet Estimate Adequate
[2016-09-24 06:18] LABS: Albumin 2.3 G/DL (3.4-5.0); Bilirubin,Total 1.4 MG/DL (0.2-1.0); Calcium 8.1 MG/DL (8.5-10.1); Potassium 3.4 MMOL/L (3.5-5.1); Total Protein 5.5 G/DL (6.4-8.3)
[2016-09-24] MEDS ORDERED: SODIUM CHLORIDE 0.9% 250 ML IV PRN ×2 (07:16→08:15)
[2016-09-24] MEDS: PANTOPRAZOLE 40 MG VIAL IV SCH (08:15)
[2016-09-24] MEDS: DILTIAZEM CD 240 MG CAPSULE PO SCH ×2 (08:15→22:14)
[2016-09-24] MEDS: CARVEDILOL 3.125 MG TABLET PO SCH ×2 (08:16→17:20)
[2016-09-24] MEDS: FENOFIBRATE 160 MG TABLET PO SCH (08:16)
[2016-09-24] MEDS: DIVALPROEX 500 MG TABLET PO SCH ×2 (08:16→22:14)
[2016-09-24] MEDS: SODIUM CHLORIDE 0.9% 1,000 ML IV SCH (09:00)
[2016-09-24] MEDS ORDERED: POTASSIUM CHLORIDE 20 MEQ/15 ML UDCUP PO ONE (09:33)
--- NOTE | 2016-09-24 11:08 | Hospitalist Progress Note ---
Assessment and Plan (1) Acute pancreatitis Status: Acute Assessment and plan: CT abd showed Pancreatic enlargement and peripancreatic inflammation compatible with changes of acute pancreatitis. Fatty infiltration of the liver Abd Uss showed Diffuse pancreatic enlargement and parenchymal heterogeneity compatible with changes of pancreatitis.No evidence of cholelithiasis. Hepatomegaly and mild diffuse fatty infiltration of the liver Lipids showed triglycerides of 3736, CL-313, LDL-117 and HDL-43 Lipase has decreased to 684.BC-negative. Hepatitis panel- negative Plan Advance to full liquids IV pain meds, antiemetics, IVF, banana bag continue with high intensity Lipitor and tricor Follow GI's recommendations PPI Lipase amylase in am repeat CT abd/pelvis Current Visit: No (2) Diabetes mellitus Status: Chronic Assessment and plan: HbA1c- 10.1 Plan: increase lantus to 20units qhs, continue with SSC, follow response. DM teaching Current Visit: No (3) Essential hypertension Status: Chronic Assessment and plan: stable on current regime Current Visit: No (4) Drug abuse Status: Acute Assessment and plan: UDS positive for marijuana and opiates Patient has been counseled Continue with DT prophylaxis with IV ativan prn Nicotine patch Current Visit: Yes (5) Hypertriglyceridemia Status: Inactive Assessment and plan: continue with high intensity Lipitor and Fenofibrate. Niacin will worsen glucose tolerance in this poorly controlled diabetic patient Low cholesterol diet. Current Visit: No (6) History of seizure Status: Acute Assessment and plan: Depakote level is noted, and continue home dose. Current Visit: Yes (7) Acute blood loss anemia Status: Acute Assessment and plan: transfuse with 2units of packed cells, follow stool for occult blood, H/H in am. Current Visit: Yes Hospitalist: Subjective Interval history: Patient is still complaining of abdominal pain. His H/H has dropped to 7.6/22.6 from 10.1/29.4. No clinical evidence of bleed.His potassium level is also 3.4. Exam - Constitutional Vitals: Period Temp Pulse Resp BP Sys/Molina Pulse Ox Last 24 Hr 97.3 F-98.9 F 57-102 18-20 113-131/59-76 93-96 General appearance: no acute distress - Respiratory Respiratory exam: Present: clear to auscultation bilaterally - Cardiovascular Cardiovascular exam: Present: regular rate and rhythm - GI/Abdominal GI/Abdominal exam: Present: tenderness - Extremities Exam Extremities exam: Present: normal inspection - Neurological Exam Neurological exam: Present: alert, oriented X3 Results - Labs CBC & BMP: 09/24/16 04:46 09/24/16 04:46 Lab Results: I have reviewed the past 24 hour labs Quality Measures - Stroke Symptom Onset Unknown: No
--- NOTE | 2016-09-24 11:22 | Gastrointestinal Progress Note ---
Assessment and Plan (1) Acute pancreatitis Status: Acute Assessment and plan: 09/24-lipase levels trending down with continued complaints of abdominal distention and discomfort. H&H also down today with stools for occult blood pending and to be transfused. CT of abdomen is pending this morning. Further plan an addendum followed by Dr. Price. 09/23-Hx of complicated pancreatitis in the past now with reoccurring episode. Lipase levels trending downward. Pain controlled with varying episodes of nausea and vomiting. Clear liquids diet has been initiated. Continue to monitor at this time. Mirilax prn. Plan and addendum to follow by Dr Price Current Visit: No Gastroenterology - PN: Subj Interval history: CC: Acute pancreatitis Patient is seen and ambulating in room, states that he is going downstairs to smoke a cigarette. He is complaining of abdominal distention and discomfort however he is also requesting to have his diet advanced at this time because he is hungry. He denies any nausea or vomiting. He is noted to have a decrease in his lipase levels down to 634 today. He is also noted to have a drop in his H&H from 12/15 to 09/07 today without overt bleeding. He has a CT of the abdomen pending for this morning. Abdomen is soft, mildly distended without tenderness to palpation. Hypoactive bowel sounds noted. He has had a bowel movement this morning with stools for occult blood pending. He is also noted to have 2 units of packed red blood cells pending for transfusion today. ROS: Denies shortness breath or chest pain Exam (Progress Note) - Constitutional Vitals: Period Temp Pulse Resp BP Sys/Molina Pulse Ox Last 24 Hr 97.3 F-98.9 F 57-102 18-20 113-131/59-76 93-96 - Other Additional findings: General appearance: normal weight, no acute distress - Head Head exam: Present: normal inspection, normocephalic - Eye Eye exam: Present: other (lids and conjunctiva unremarkable). Absent: scleral icterus - ENT ENT exam: Present: normal exam, normal oropharynx - Neck Neck exam: Present: normal inspection - Respiratory Respiratory exam: Present: clear to auscultation bilaterally. Absent: rales, rhonchi, wheezes - Cardiovascular Cardiovascular exam: Present: regular rate and rhythm. Absent: diastolic murmur , JVD, systolic murmur - GI/Abdominal GI/Abdominal exam: Present: Hypoactive bowel sounds, soft, distended. Absent: ascites, mass, organomegaly, tenderness - Extremities Exam Extremities exam: Present: normal inspection, full ROM - Back Exam Back exam: Present: normal inspection - Neurological Exam Neurological exam: Present: alert, oriented X3 - Psychiatric Psychiatric exam: Present: normal affect, normal mood - Skin Skin exam: Present: normal color, warm, dry Results - Labs CBC & BMP: 09/24/16 04:46 09/24/16 04:46 Lab Results: I have reviewed the past 24 hour labs
--- NOTE | 2016-09-24 11:38 | CT Report ---
CT abdomen pelvis Indication: Abdominal distention, drop in hematocrit Comparison: 21 September 2016 Technique: Axial CT imaging of the abdomen and pelvis is performed without contrast. Findings: There is small left pleural effusion and left lower lung airspace disease. Trace amount is seen on the right. CT abdomen: There is increased stranding around the pancreas when compared to previous study. Fluid is seen in both paracolic gutters. The head of the pancreas is ill-defined. The liver is diffusely decreased in density. Spleen and adrenal glands are normal in size and density. No evidence of focal lesion is demonstrated in these solid organs. Kidneys are normal in size and density. No evidence of hydronephrosis or nephrolithiasis is seen. The bowel caliber is normal and no wall thickening or adjacent inflammatory change is seen. No evidence of free fluid or free air is present. CT pelvis: Small amount of free pelvic fluid is seen. Diverticula are present involving the sigmoid colon without evidence of diverticulitis. The bowel and bladder appear within normal limits. The pelvic organs show no evidence of abnormality Impression: Increased stranding around the pancreas and in the mesentery suggests worsening pancreatitis. There is fluid in both paracolic gutters. The head of the pancreas is indistinct. Small left pleural effusion and small amounts of left lower lung airspace disease. No other significant changes. This CT exam was performed using one or more the following dose reduction techniques: Automated exposure control, adjustment of the MA and/or KV according to patient size, or use of iterative reconstruction technique. PROCEDURE INTERPRETED AT [facility] DEPARTMENT OF RADIOLOGY Final Report Signed by: Dr. Marty Fuller
[2016-09-24] MEDS: HYDROmorphone 2 MG/1 ML VIAL IV PRN ×2 (11:53→19:54)
[2016-09-24] MEDS: INSULIN GLARGINE 100 UNIT/ML SUBCUT SCH (22:13)
[2016-09-24] MEDS: ALPRAZolam 0.5 MG TABLET PO PRN (22:14)
[2016-09-24] MEDS: ATORVASTATIN 40 MG TABLET PO SCH (22:14)
[2016-09-25] MEDS: INSULIN LISPRO 100 UNIT/ML SUBCUT SCH ×6 (00:40→21:50)
[2016-09-25] MEDS: [UNRECOGNIZED DRUG - OTHER] IV SCH (04:32)
[2016-09-25] MEDS: FOLIC ACID IV SCH (04:32)
[2016-09-25] MEDS: MULTIVITAMIN IV SCH (04:32)
[2016-09-25 05:05] LABS: Basophils % 0.3 % (0.0-0.8); Eosinophils # 0.1 10*3/uL (0.0-0.87); Eosinophils % 1.6 % (0.00-10.9); Hematocrit 25.8 VOL% (42.0-52.0); Hemoglobin 8.9 GM/DL (14.0-18.0); Immature Granulocytes % 1.6 %; Lymphocytes # 1.5 10*3/uL (1.4-4.0); Lymphocytes % 24.2 % (21.2-54.2); Mean Corpuscular HGB Conc 34.5 GM/DL (32-36); Mean Corpuscular Hemoglobin 32 PG (27-34); Mean Corpuscular Volume 93.5 FL (87-102); Mean Platelet Volume 11.9 FL (9.6-12.0); Monocytes # 0.3 10*3/uL (0.11-0.8); Monocytes % 5.6 % (1.7-12.7); Neutrophils # 4.1 10*3/uL (1.4-7.4); Neutrophils % 66.7 % (38.7-73.9); Platelet Count 170 T/CUMM (130-400); Red Blood Count 2.76 MC/CUMM (3.8-5.5); Red Cell Distribution Width 14.6 % (9.3-17.3); White Blood Count 6.1 T/CUMM (4-12)
[2016-09-25 05:36] LABS: Albumin 2.4 G/DL (3.4-5.0); Bilirubin,Total 1.1 MG/DL (0.2-1.0); Calcium 8.3 MG/DL (8.5-10.1); Osmolality,Calculated 282.7 MOS/KG (273-304); Potassium 3.3 MMOL/L (3.5-5.1); Total Protein 5.6 G/DL (6.4-8.3)
--- NOTE | 2016-09-25 10:20 | XRay Report ---
XR KUB Indication: Generalized abdominal pain Comparison: CT abdomen pelvis dated September 24, 2016 Technique: Frontal views of the abdomen Findings: Nonspecific bowel gas pattern. Much of the abdomen is essentially gasless. Bibasilar atelectasis/consolidation, left greater than right and probable small bilateral pleural fluid. Visualized osseous and surrounding soft tissue structures demonstrate no acute abnormality. IMPRESSION: As above. PROCEDURE INTERPRETED AT [facility] DEPARTMENT OF RADIOLOGY Final Report Signed by: Dr Adam Singletary
[2016-09-25] MEDS: PANTOPRAZOLE 40 MG VIAL IV SCH (11:00)
[2016-09-25] MEDS: CARVEDILOL 3.125 MG TABLET PO SCH ×2 (11:06→16:19)
[2016-09-25] MEDS: FENOFIBRATE 160 MG TABLET PO SCH (11:06)
[2016-09-25] MEDS: DILTIAZEM CD 240 MG CAPSULE PO SCH ×2 (11:06→22:25)
[2016-09-25] MEDS: DIVALPROEX 500 MG TABLET PO SCH ×2 (11:06→22:25)
--- NOTE | 2016-09-25 11:15 | Gastrointestinal Progress Note ---
Assessment and Plan (1) Acute pancreatitis Status: Acute Assessment and plan: 09/25-lipase levels elevated today over 1999. Continued abdominal pain. H&H holding posttransfusion on yesterday. CT findings noted as below. Plan an addendum followed by Dr. Price. 09/24-lipase levels trending down with continued complaints of abdominal distention and discomfort. H&H also down today with stools for occult blood pending and to be transfused. CT of abdomen is pending this morning. Further plan an addendum followed by Dr. Price. 09/23-Hx of complicated pancreatitis in the past now with reoccurring episode. Lipase levels trending downward. Pain controlled with varying episodes of nausea and vomiting. Clear liquids diet has been initiated. Continue to monitor at this time. Mirilax prn. Plan and addendum to follow by Dr Price Current Visit: No Gastroenterology - PN: Subj Interval history: CC: Pancreatitis Pt is seen, awake and alert, lying in bed. States he is feeling about the same with minimal relief in his abdominal pain since yesterday. He states that he has had no nausea or vomiting. He is afebrile. Lipase levels are noted to be elevated today at 2666. HH is improved at 10/11 following [address] of abdomen on yesterday noted to show increase stranding around the pancreas suggesting worsening pancreatitis with paracolic gutter fluid and indistinct head of pancreas. Abdomen is soft, mildly distended, nontender to palpation. ROS: Denies shortness of breath or chest pain Exam (Progress Note) - Constitutional Vitals: Period Temp Pulse Resp BP Sys/Molina Pulse Ox Last 24 Hr 96.1 F-98.9 F 69-99 18-22 106-132/55-78 90-98 - Other Additional findings: General appearance: normal weight, no acute distress - Head Head exam: Present: normal inspection, normocephalic - Eye Eye exam: Present: other (lids and conjunctiva unremarkable). Absent: scleral icterus - ENT ENT exam: Present: normal exam, normal oropharynx - Neck Neck exam: Present: normal inspection - Respiratory Respiratory exam: Present: clear to auscultation bilaterally. Absent: rales, rhonchi, wheezes - Cardiovascular Cardiovascular exam: Present: regular rate and rhythm. Absent: diastolic murmur , JVD, systolic murmur - GI/Abdominal GI/Abdominal exam: Present: Hypoactive bowel sounds, soft, distended. Absent: ascites, mass, organomegaly, tenderness - Extremities Exam Extremities exam: Present: normal inspection, full ROM - Back Exam Back exam: Present: normal inspection - Neurological Exam Neurological exam: Present: alert, oriented X3 - Psychiatric Psychiatric exam: Present: normal affect, normal mood - Skin Skin exam: Present: normal color, warm, dry Results - Labs CBC & BMP: 09/25/16 04:12 09/25/16 04:12 Lab Results: I have reviewed the past 24 hour labs - Diagnostic Findings Procedure: CT Abdomen and Pelvis: report reviewed by me
[2016-09-25] MEDS: HYDROmorphone 2 MG/1 ML VIAL IV PRN ×2 (11:20→14:54)
--- NOTE | 2016-09-25 11:48 | Hospitalist Progress Note ---
Assessment and Plan (1) Acute pancreatitis Status: Acute Assessment and plan: lipase is worsening,-[address] 09/24 showed Increased stranding around the pancreas and in the mesentery suggests worsening pancreatitis. There is fluid in both paracolic gutters. The head of the pancreas is indistinct. Small left pleural effusion and small amounts of left lower lung airspace disease. No other significant changes. KUB-09/25-Normal gas pattern CT abd 09/21:showed Pancreatic enlargement and peripancreatic inflammation compatible with changes of acute pancreatitis. Fatty infiltration of the liver Abd Uss showed Diffuse pancreatic enlargement and parenchymal heterogeneity compatible with changes of pancreatitis.No evidence of cholelithiasis. Hepatomegaly and mild diffuse fatty infiltration of the liver Lipids showed triglycerides of 3736, CL-313, LDL-117 and HDL-43 BC-negative. Hepatitis panel- negative Plan NPO PPN Continue pin meds, IVF antiemetics,multivitamins continue with high intensity Lipitor and tricor Follow GI's recommendations PPI Lipase amylase in am Current Visit: No (2) Diabetes mellitus Status: Chronic Assessment and plan: HbA1c- 10.1 Plan:continue current regime,watch blood sugar closely, patient is back to NPO DM teaching Current Visit: No (3) Essential hypertension Status: Chronic Assessment and plan: stable on current regime Current Visit: No (4) Drug abuse Status: Acute Assessment and plan: UDS positive for marijuana and opiates Patient has been counseled Continue with DT prophylaxis with IV ativan prn Nicotine patch Current Visit: Yes (5) Hypertriglyceridemia Status: Inactive Assessment and plan: continue with high intensity Lipitor and Fenofibrate. Niacin will worsen glucose tolerance in this poorly controlled diabetic patient Low cholesterol diet. Current Visit: No (6) History of seizure Status: Acute Assessment and plan: Depakote level is noted, and continue home dose. Current Visit: Yes (7) Acute blood loss anemia Status: Acute Assessment and plan: s/p 2units of packed cells, stool for occult blood was negative. This may be dilutional., H/H in am. Current Visit: Yes (8) Smoking Status: Acute Assessment and plan: continue with Nicotine patch.patient has been counseled. Current Visit: Yes Hospitalist: Subjective Interval history: Patient is still complaining about pain. He apparently throws up sometimes when he takes po. His Lipase is worse and his repeat abd CT scan indicates worsening pancreatitis.KUB showed normal pattern.He has also been going downstairs to smoke despite having a nicotine patch. Exam - Constitutional Vitals: Period Temp Pulse Resp BP Sys/Molina Pulse Ox Last 24 Hr 96.1 F-98.9 F 69-99 18-22 106-132/55-78 90-98 General appearance: no acute distress - Head Head exam: Present: normal inspection - Respiratory Respiratory exam: Present: clear to auscultation bilaterally - Cardiovascular Cardiovascular exam: Present: regular rate and rhythm - GI/Abdominal GI/Abdominal exam: Present: other (looks more distended) - Extremities Exam Extremities exam: Present: normal inspection - Neurological Exam Neurological exam: Present: alert, oriented X3 Results - Labs CBC & BMP: 09/25/16 04:12 09/25/16 04:12 Lab Results: I have reviewed the past 24 hour labs Quality Measures - Stroke Symptom Onset Unknown: No
[2016-09-25] MEDS: SODIUM CHLORIDE 0.9% 1,000 ML IV SCH (16:12)
[2016-09-25] MEDS: MULTIVITAMIN INJ 10 ML in AMINO ACIDS/DEXT/LYTES 4.25-5% 2,000 ML IV SCH (16:50)
[2016-09-25] MEDS: INSULIN GLARGINE 100 UNIT/ML SUBCUT SCH (22:24)
[2016-09-25] MEDS: ATORVASTATIN 40 MG TABLET PO SCH (22:25)
[2016-09-26] MEDS: INSULIN LISPRO 100 UNIT/ML SUBCUT SCH ×6 (01:31→22:57)
[2016-09-26] MEDS: SODIUM CHLORIDE 0.9% 1,000 ML IV SCH ×3 (02:44→13:03)
[2016-09-26 07:01] LABS: Basophils % 0.3 % (0.0-0.8); Eosinophils # 0.1 10*3/uL (0.0-0.87); Eosinophils % 1.6 % (0.00-10.9); Hematocrit 26.5 VOL% (42.0-52.0); Hemoglobin 9.1 GM/DL (14.0-18.0); Immature Granulocytes % 2.9 %; Immature Granulocytes Absolute 0.17 #; Lymphocytes # 1.6 10*3/uL (1.4-4.0); Lymphocytes % 28.1 % (21.2-54.2); Mean Corpuscular HGB Conc 34.3 GM/DL (32-36); Mean Corpuscular Hemoglobin 33 PG (27-34); Mean Corpuscular Volume 94.6 FL (87-102); Mean Platelet Volume 11.9 FL (9.6-12.0); Monocytes # 0.3 10*3/uL (0.11-0.8); Monocytes % 5.9 % (1.7-12.7); Neutrophils # 3.6 10*3/uL (1.4-7.4); Neutrophils % 61.2 % (38.7-73.9); Platelet Count 188 T/CUMM (130-400); Red Cell Distribution Width 14.3 % (9.3-17.3); White Blood Count 5.8 T/CUMM (4-12)
[2016-09-26 07:32] LABS: Calcium 8.4 MG/DL (8.5-10.1); Magnesium 1.9 MG/DL (1.8-2.4); Osmolality,Calculated 283.5 MOS/KG (273-304); Phosphorous 3.8 MG/DL (2.5-4.9); Prealbumin 11.7 MG/DL (20-40)
--- NOTE | 2016-09-26 08:39 | Hospitalist Progress Note ---
Assessment and Plan (1) Acute pancreatitis Status: Acute Assessment and plan: due to ETOH and hypertriglyceridemia. Lipase is trending back down, symptoms are improving. Patient was started on PPN yesterday inorder to rest the bowel. Recent repeat CT showed worsening of symptoms. Patient went to [facility] yesterday to solicit for food despite being placed on NPO. KUB and Abd USS-fairly unremarkable except for fatty Liver. Hepatitis panel, BC- negative. Repeat CT 09/24 showed Increased stranding around the pancreas and in the mesentery suggests worsening pancreatitis. There is fluid in both paracolic gutters. The head of the pancreas is indistinct. Small left pleural effusion and small amounts of left lower lung airspace disease. No other significant changes. CT abd 09/21:showed Pancreatic enlargement and peripancreatic inflammation compatible with changes of acute pancreatitis. Fatty infiltration of the liver Plan continue NPO, PPN Continue pain meds, IVF antiemetics,multivitamins, thiamine, folate continue with high intensity Lipitor and tricor Follow GI's recommendations PPI Lipase amylase in am Current Visit: No (2) Diabetes mellitus Status: Chronic Assessment and plan: HbA1c- 10.1 Plan:continue current regime,watch blood sugar closely, patient is back to NPO DM teaching Current Visit: No (3) Essential hypertension Status: Chronic Assessment and plan: stable on current regime Current Visit: No (4) Drug abuse Status: Acute Assessment and plan: UDS positive for marijuana and opiates Patient has been counseled Continue with DT prophylaxis with IV ativan prn Current Visit: Yes (5) Hypertriglyceridemia Status: Inactive Assessment and plan: continue with high intensity Lipitor and Fenofibrate. Niacin will worsen glucose tolerance in this poorly controlled diabetic patient Low cholesterol diet. Current Visit: No (6) History of seizure Status: Acute Assessment and plan: Depakote level is noted, and continue home dose. Current Visit: Yes (7) Acute blood loss anemia Status: Acute Assessment and plan: s/p 2units of packed cells, stool for occult blood was negative. This may be dilutional., H/H in am. Current Visit: Yes (8) Smoking Status: Acute Assessment and plan: continue with Nicotine patch.patient has been counseled. Current Visit: Yes Hospitalist: Subjective Interval history: 35yr old with multiple medical issues is on admission for acute pancreatitis, symptoms and Lipase level were getting initially better and later became worse as evident by a repeat CT and rising Lipase level plus worsening pain. Patient was made NPO yesterday inorder to rest his bowel but apparently patient went to [facility] to solicit for food where he was given some juice and water. He delights in going downstairs to smoke and he complains about almost everything most especially of hunger. Exam - Constitutional Vitals: Period Temp Pulse Resp BP Sys/Molina Pulse Ox Last 24 Hr 97.4 F-98.3 F 64-81 20-22 111-133/63-79 92-98 General appearance: no acute distress - Head Head exam: Present: normal inspection - Respiratory Respiratory exam: Present: clear to auscultation bilaterally - Cardiovascular Cardiovascular exam: Present: regular rate and rhythm - GI/Abdominal GI/Abdominal exam: Present: normal bowel sounds, other (mildly tender) - Extremities Exam Extremities exam: Present: normal inspection - Neurological Exam Neurological exam: Present: alert, oriented X3 Results - Labs CBC & BMP: 09/26/16 05:52 09/26/16 05:52 Lab Results: I have reviewed the past 24 hour labs Quality Measures - Stroke Symptom Onset Unknown: No
[2016-09-26] MEDS: FENOFIBRATE 160 MG TABLET PO SCH (09:29)
[2016-09-26] MEDS: DILTIAZEM CD 240 MG CAPSULE PO SCH ×2 (09:29→20:39)
[2016-09-26] MEDS: DIVALPROEX 500 MG TABLET PO SCH ×2 (09:29→20:39)
[2016-09-26] MEDS: CARVEDILOL 3.125 MG TABLET PO SCH ×2 (09:29→17:50)
[2016-09-26] MEDS: PANTOPRAZOLE 40 MG VIAL IV SCH (09:30)
[2016-09-26] MEDS: FOLIC ACID IV SCH (10:12)
[2016-09-26] MEDS: THIAMINE IV SCH (10:12)
[2016-09-26] MEDS: SODIUM CHLORIDE 0.9% IV SCH (10:12)
--- NOTE | 2016-09-26 10:39 | Gastrointestinal Progress Note ---
Assessment and Plan (1) Acute pancreatitis Status: Acute Assessment and plan: 09/26-abdominal pain continues, no complaints of nausea or vomiting at present. Lipase remains elevated at 2300. Afebrile. H&H is stable at 11/12. Continue with IV fluids and n.p.o. at this time. Plan an addendum follow Dr. Price. 09/25-lipase levels elevated today over 1999. Continued abdominal pain. H&H holding posttransfusion on yesterday. CT findings noted as below. Plan an addendum followed by Dr. Price. 09/24-lipase levels trending down with continued complaints of abdominal distention and discomfort. H&H also down today with stools for occult blood pending and to be transfused. CT of abdomen is pending this morning. Further plan an addendum followed by Dr. Price. 09/23-Hx of complicated pancreatitis in the past now with reoccurring episode. Lipase levels trending downward. Pain controlled with varying episodes of nausea and vomiting. Clear liquids diet has been initiated. Continue to monitor at this time. Mirilax prn. Plan and addendum to follow by Dr Price Current Visit: No Gastroenterology - PN: Subj Interval history: CC: Pancreatitis Patient is seen, awake and alert lying in bed. States that he is feeling about the same and still is complaining of abdominal pain, however patient is also complaining that he is hungry wanting to eat something. He denies any nausea or vomiting. He is afebrile at present time. No leukocytosis. H&H is stable at 11/12 without overt bleeding. He is noted to have hypokalemia today with potassium 3.1. Lipase level remains elevated at 2300. Triglycerides also noted to be elevated at 545. He is continued on TPN at present time. Abdomen is soft, nontender. Patient states he is still requiring fairly frequent pain medication. ROS: Denies shortness of breath or chest pain Exam (Progress Note) - Constitutional Vitals: Period Temp Pulse Resp BP Sys/Molina Pulse Ox Last 24 Hr 97.4 F-98.3 F 64-81 20-22 111-133/63-79 92-98 - Other Additional findings: General appearance: normal weight, no acute distress - Head Head exam: Present: normal inspection, normocephalic - Eye Eye exam: Present: other (lids and conjunctiva unremarkable). Absent: scleral icterus - ENT ENT exam: Present: normal exam, normal oropharynx - Neck Neck exam: Present: normal inspection - Respiratory Respiratory exam: Present: clear to auscultation bilaterally. Absent: rales, rhonchi, wheezes - Cardiovascular Cardiovascular exam: Present: regular rate and rhythm. Absent: diastolic murmur , JVD, systolic murmur - GI/Abdominal GI/Abdominal exam: Present: Hypoactive bowel sounds, soft, distended. Absent: ascites, mass, organomegaly, tenderness - Extremities Exam Extremities exam: Present: normal inspection, full ROM - Back Exam Back exam: Present: normal inspection - Neurological Exam Neurological exam: Present: alert, oriented X3 - Psychiatric Psychiatric exam: Present: normal affect, normal mood - Skin Skin exam: Present: normal color, warm, dry Results - Labs CBC & BMP: 09/26/16 05:52 09/26/16 05:52 Lab Results: I have reviewed the past 24 hour labs - Diagnostic Findings Procedure: CT Abdomen and Pelvis: report reviewed by me
[2016-09-26] MEDS: INSULIN REGULAR IV SCH (14:02)
[2016-09-26] MEDS: MULTIVITAMIN IV SCH (14:02)
[2016-09-26] MEDS: [UNRECOGNIZED DRUG - OTHER] IV SCH (14:02)
[2016-09-26] MEDS: POTASSIUM CHLORIDE IV SCH (14:02)
[2016-09-26] MEDS: MULTIVITAMIN INJ 10 ML in AMINO ACIDS/DEXT/LYTES 4.25-5% 2,000 ML IV SCH (14:03)
[2016-09-26] MEDS: HYDROmorphone 2 MG/1 ML VIAL IV PRN (20:36)
[2016-09-26] MEDS: INSULIN GLARGINE 100 UNIT/ML SUBCUT SCH (20:37)
[2016-09-26] MEDS: ALPRAZolam 0.5 MG TABLET PO PRN (20:38)
[2016-09-26] MEDS: ATORVASTATIN 40 MG TABLET PO SCH (20:39)
[2016-09-27] MEDS: INSULIN LISPRO 100 UNIT/ML SUBCUT SCH ×6 (01:13→22:37)
[2016-09-27] MEDS: SODIUM CHLORIDE 0.9% 1,000 ML IV SCH ×2 (01:14→18:45)
[2016-09-27 05:24] LABS: Basophils % 0.5 % (0.0-0.8); Eosinophils # 0.1 10*3/uL (0.0-0.87); Eosinophils % 1.6 % (0.00-10.9); Hematocrit 27.8 VOL% (42.0-52.0); Hemoglobin 9.4 GM/DL (14.0-18.0); Immature Granulocytes % 1.8 %; Immature Granulocytes Absolute 0.11 #; Lymphocytes # 1.7 10*3/uL (1.4-4.0); Lymphocytes % 28.4 % (21.2-54.2); Mean Corpuscular HGB Conc 33.8 GM/DL (32-36); Mean Corpuscular Hemoglobin 32 PG (27-34); Mean Corpuscular Volume 94.9 FL (87-102); Monocytes # 0.4 10*3/uL (0.11-0.8); Monocytes % 6.2 % (1.7-12.7); Neutrophils # 3.8 10*3/uL (1.4-7.4); Neutrophils % 61.5 % (38.7-73.9); Platelet Count 189 T/CUMM (130-400); Red Blood Count 2.93 MC/CUMM (3.8-5.5); Red Cell Distribution Width 14.1 % (9.3-17.3); White Blood Count 6.1 T/CUMM (4-12)
[2016-09-27 05:51] LABS: Albumin 2.7 G/DL (3.4-5.0); Bilirubin,Total 0.7 MG/DL (0.2-1.0); Calcium 9.2 MG/DL (8.5-10.1); Osmolality,Calculated 278.7 MOS/KG (273-304); Potassium 4.3 MMOL/L (3.5-5.1); Total Protein 6.3 G/DL (6.4-8.3)
[2016-09-27] MEDS: PANTOPRAZOLE 40 MG VIAL IV SCH (08:33)
[2016-09-27] MEDS: CARVEDILOL 3.125 MG TABLET PO SCH ×2 (08:34→17:59)
[2016-09-27] MEDS: DIVALPROEX 500 MG TABLET PO SCH ×2 (08:34→22:36)
[2016-09-27] MEDS: FENOFIBRATE 160 MG TABLET PO SCH (08:34)
[2016-09-27] MEDS: DILTIAZEM CD 240 MG CAPSULE PO SCH ×2 (08:34→22:35)
--- NOTE | 2016-09-27 08:38 | Hospitalist Progress Note ---
Assessment and Plan - Time spent with patient Time spent with patient: Greater than 30 minutes (Pt is new to me today. Chart reviewed by me today.) (1) Recurrent acute pancreatitis Status: Acute Assessment and plan: Appreciate GI f/u. Continue clear liquid diet. Continue pain management Current Visit: Yes (2) Diabetes mellitus Status: Chronic Assessment and plan: Continue insulin Current Visit: No (3) Acute blood loss anemia Status: Acute Assessment and plan: H/H stable s/p transfusion Current Visit: No (4) Hyperlipidemia Status: Chronic Assessment and plan: Continue current treatment plan. Current Visit: No (5) Drug abuse Status: Acute Current Visit: Yes Hospitalist: Subjective Interval history: Epigastric pain is about the same as yesterday. Still want to eat solid food despite only clear liquid diet is ordered per GI. No fever, nausea, vomiting or diarrhea. Exam - Constitutional Vitals: Period Temp Pulse Resp BP Sys/Molina Pulse Ox Last 24 Hr 96.5 F-98.3 F 20-75 18-62 100-138/50-77 93-98 Exam: General: Lying in bed supine. AAOx3 HEENT: AC NT EOMI Normal lips and teeth. Lungs: B/l CTA Abd: +BS, ND, Tenderness at epigastric area. Neuro: AAOx3 Results - Labs CBC & BMP: 09/27/16 04:22 09/27/16 04:22 Quality Measures - Stroke Symptom Onset Unknown: No
--- NOTE | 2016-09-27 09:46 | Gastrointestinal Progress Note ---
Assessment and Plan (1) Acute pancreatitis Status: Acute Assessment and plan: 09/27-abdominal pain without change, no nausea or vomiting. Lipase 1456. H&H is stable at 11/13. Continue clear liquid diet at this time. Plan addendum to follow Dr. gregory. 09/26-abdominal pain continues, no complaints of nausea or vomiting at present. Lipase remains elevated at 2300. Afebrile. H&H is stable at 11/12. Continue with IV fluids and n.p.o. at this time. Plan an addendum follow Dr. Price. 09/25-lipase levels elevated today over 1999. Continued abdominal pain. H&H holding posttransfusion on yesterday. CT findings noted as below. Plan an addendum followed by Dr. Price. 09/24-lipase levels trending down with continued complaints of abdominal distention and discomfort. H&H also down today with stools for occult blood pending and to be transfused. CT of abdomen is pending this morning. Further plan an addendum followed by Dr. Price. 09/23-Hx of complicated pancreatitis in the past now with reoccurring episode. Lipase levels trending downward. Pain controlled with varying episodes of nausea and vomiting. Clear liquids diet has been initiated. Continue to monitor at this time. Mirilax prn. Plan and addendum to follow by Dr Price Current Visit: No Gastroenterology - PN: Subj Interval history: CC: Pancreatitis Patient is seen awake and alert sitting up in bed. States he is having continued abdominal pain but denies any nausea or vomiting. He was restarted on clear liquids and states he is tolerating this however he is continually asking to advance his diet. His pain is unchanged at this time. He is afebrile without leukocytosis. Lipase levels are 1456. He verbalizes that his pain is not improved at this time. Had another lengthy discussion with patient regarding his desire to eat and the association with his pancreatitis. Patient was also instructed again regarding the complications of pancreatitis as well as the causative factors. Patient verbalizes understanding of these things however he is still insistent that he wants to eat. Abdomen soft, nontender at this time. ROS: Denies shortness of breath or chest pain Exam (Progress Note) - Constitutional Vitals: Period Temp Pulse Resp BP Sys/Molina Pulse Ox Last 24 Hr 96.5 F-98.3 F 20-75 18-62 100-138/50-76 93-98 General appearance: normal weight, no acute distress - Head Head exam: Present: normal inspection, normocephalic - Eye Eye exam: Present: other (Lids and conjunctive are unremarkable). Absent: scleral icterus - ENT ENT exam: Present: normal exam, normal oropharynx - Neck Neck exam: Present: normal inspection - Respiratory Respiratory exam: Present: clear to auscultation bilaterally. Absent: rales, rhonchi, wheezes - Cardiovascular Cardiovascular exam: Present: regular rate and rhythm. Absent: diastolic murmur , JVD, systolic murmur - GI/Abdominal GI/Abdominal exam: Present: normal bowel sounds, soft. Absent: ascites, distended, mass, organomegaly, tenderness - Extremities Exam Extremities exam: Present: normal inspection, full ROM - Back Exam Back exam: Present: normal inspection - Neurological Exam Neurological exam: Present: alert, oriented X3 - Psychiatric Psychiatric exam: Present: normal affect, normal mood - Skin Skin exam: Present: normal color, warm, dry Results - Labs CBC & BMP: 09/27/16 04:22 09/27/16 04:22 Lab Results: I have reviewed the past 24 hour labs
[2016-09-27] MEDS: THIAMINE IV SCH (13:32)
[2016-09-27] MEDS: SODIUM CHLORIDE 0.9% IV SCH (13:32)
[2016-09-27] MEDS: FOLIC ACID IV SCH (13:32)
[2016-09-27] MEDS: POTASSIUM CHLORIDE IV SCH (14:15)
[2016-09-27] MEDS: INSULIN REGULAR IV SCH (14:15)
[2016-09-27] MEDS: MULTIVITAMIN IV SCH (14:15)
[2016-09-27] MEDS: [UNRECOGNIZED DRUG - OTHER] IV SCH (14:15)
[2016-09-27] MEDS: HYDROmorphone 2 MG/1 ML VIAL IV PRN (22:32)
[2016-09-27] MEDS: ATORVASTATIN 40 MG TABLET PO SCH (22:36)
[2016-09-27] MEDS: INSULIN GLARGINE 100 UNIT/ML SUBCUT SCH (22:36)
[2016-09-27] MEDS: ALPRAZolam 0.5 MG TABLET PO PRN (22:36)
[2016-09-28] MEDS: INSULIN LISPRO 100 UNIT/ML SUBCUT SCH ×6 (00:35→21:27)
[2016-09-28] MEDS: SODIUM CHLORIDE 0.9% 1,000 ML IV SCH ×2 (03:39→05:00)
[2016-09-28] MEDS: FOLIC ACID IV SCH (08:54)
[2016-09-28] MEDS: THIAMINE IV SCH (08:54)
[2016-09-28] MEDS: SODIUM CHLORIDE 0.9% IV SCH (08:54)
[2016-09-28] MEDS: CARVEDILOL 3.125 MG TABLET PO SCH ×2 (08:56→17:48)
[2016-09-28] MEDS: DILTIAZEM CD 240 MG CAPSULE PO SCH ×2 (08:56→21:29)
[2016-09-28] MEDS: FENOFIBRATE 160 MG TABLET PO SCH (08:56)
[2016-09-28] MEDS: DIVALPROEX 500 MG TABLET PO SCH ×2 (08:56→21:29)
[2016-09-28] MEDS: PANTOPRAZOLE 40 MG VIAL IV SCH (09:00)
--- NOTE | 2016-09-28 14:23 | Hospitalist Progress Note ---
Assessment and Plan (1) Diabetes mellitus type 2 in obese Status: Acute Current Visit: Yes (2) Anemia Status: Acute Assessment and plan: This is stable. Patient does not have any symptoms from it. Continue current management Current Visit: No Qualifiers: Bone marrow failure anemia type: unspecified bone marrow failure (3) Recurrent acute pancreatitis Status: Acute Assessment and plan: Patient is doing well started to be fed today. Will repeat chemistries tomorrow. If he tolerates meals patient should be able be discharged home Current Visit: Yes Hospitalist: Subjective Interval history: Patient has been seen interviewed and examined and chart has been reviewed. This is my first encounter with the patient. 35-year-old gentleman with history of alcoholism presented to the hospital pancreatitis. Labs from date of admission and been noted patient had mild/moderate bedside index of acute severity for acute pancreatitis. He is currently doing well. Her normal creatinine normal chest x-ray did have some anemia at admission he had no fevers and normal white count. Is requesting to be fed regular diet. Exam - Constitutional Vitals: Period Temp Pulse Resp BP Sys/Molina Pulse Ox Last 24 Hr 96.4 F-98.4 F 60-78 16-22 113-130/66-86 94-98 General appearance: no acute distress, over weight - Head Head exam: Present: normocephalic, atraumatic - Eye Eye exam: Present: EOMI Pupils: Present: HELEN - ENT ENT exam: Present: normal exam, normal oropharynx - Neck Neck exam: Present: normal inspection - Respiratory Respiratory exam: Present: clear to auscultation bilaterally - Cardiovascular Cardiovascular exam: Present: regular rate and rhythm - GI/Abdominal GI/Abdominal exam: Present: normal bowel sounds, soft, other (Multiple surgical scars on abdomen resulting from prior laparotomies for management of his complication of pancreatitis he does not not have pancreatic insufficiency) - Extremities Exam Extremities exam: Present: full ROM - Back Exam Back exam: Present: normal inspection - Neurological Exam Neurological exam: Present: alert, oriented X3, CN II-XII intact - Psychiatric Psychiatric exam: Present: normal affect, normal mood - Skin Skin exam: Present: normal color, warm, dry Results - Labs CBC & BMP: 09/27/16 04:22 09/27/16 04:22 Lab Results: I have reviewed the past 24 hour labs Quality Measures - Stroke Symptom Onset Unknown: No
[2016-09-28] MEDS: INSULIN GLARGINE 100 UNIT/ML SUBCUT SCH (21:28)
[2016-09-28] MEDS: ALPRAZolam 0.5 MG TABLET PO PRN (21:29)
[2016-09-28] MEDS: ATORVASTATIN 40 MG TABLET PO SCH (21:30)
[2016-09-29] MEDS: INSULIN LISPRO 100 UNIT/ML SUBCUT SCH ×6 (01:07→21:44)
[2016-09-29 03:16] LABS: Basophils % 0.4 % (0.0-0.8); Eosinophils # 0.1 10*3/uL (0.0-0.87); Hematocrit 29.9 VOL% (42.0-52.0); Hemoglobin 10.1 GM/DL (14.0-18.0); Immature Granulocytes % 1.3 %; Immature Granulocytes Absolute 0.06 #; Lymphocytes # 1.9 10*3/uL (1.4-4.0); Lymphocytes % 42.6 % (21.2-54.2); Mean Corpuscular HGB Conc 33.8 GM/DL (32-36); Mean Corpuscular Hemoglobin 32 PG (27-34); Mean Corpuscular Volume 95.8 FL (87-102); Mean Platelet Volume 11.2 FL (9.6-12.0); Monocytes # 0.3 10*3/uL (0.11-0.8); Monocytes % 6.4 % (1.7-12.7); Neutrophils # 2.2 10*3/uL (1.4-7.4); Neutrophils % 47.3 % (38.7-73.9); Platelet Count 219 T/CUMM (130-400); Red Blood Count 3.12 MC/CUMM (3.8-5.5); Red Cell Distribution Width 13.8 % (9.3-17.3); White Blood Count 4.6 T/CUMM (4-12)
[2016-09-29 03:44] LABS: Magnesium 1.9 MG/DL (1.8-2.4); Osmolality,Calculated 280.7 MOS/KG (273-304); Potassium 3.8 MMOL/L (3.5-5.1)
[2016-09-29 06:58] LABS: Apearance,Urine CLEAR (Clear); Bacteria,Urine Occasional /HPF (Few); Bilirubin,Urine Negative (Negative); Blood, Urine Negative (Negative); Glucose,Urine (UA) 50 mg/dL (Negative); Ketones,Urine Negative (Negative); Nitrite,Urine Negative (Negative); Protein,Urine Negative; Sperm,Urine Occasional /HPF (Negative); Urine Color Straw (Yellow); Urine Specific Gravity 1.004 (1.001-1.035); Urine Urobilinogen < 2.0 EU/DL (0.2-1.0); WBC,Urine <1 /HPF (0-6)
[2016-09-29] MEDS: CARVEDILOL 3.125 MG TABLET PO SCH ×2 (09:47→17:29)
[2016-09-29] MEDS: THIAMINE IV SCH (09:48)
[2016-09-29] MEDS: SODIUM CHLORIDE 0.9% IV SCH (09:48)
[2016-09-29] MEDS: FOLIC ACID IV SCH (09:48)
[2016-09-29] MEDS: DILTIAZEM CD 240 MG CAPSULE PO SCH ×2 (09:49→21:51)
[2016-09-29] MEDS: FENOFIBRATE 160 MG TABLET PO SCH (09:49)
[2016-09-29] MEDS: PANTOPRAZOLE 40 MG VIAL IV SCH (09:49)
[2016-09-29] MEDS: DIVALPROEX 500 MG TABLET PO SCH ×2 (09:50→21:43)
[2016-09-29] MEDS ORDERED: INSULIN LISPRO 100 UNIT/ML SUBCUT ONE (12:18)
[2016-09-29] MEDS: ATORVASTATIN 40 MG TABLET PO SCH (21:42)
[2016-09-29] MEDS: INSULIN GLARGINE 100 UNIT/ML SUBCUT SCH (21:43)
[2016-09-30 06:08] LABS: Basophils % 0.4 % (0.0-0.8); Eosinophils # 0.1 10*3/uL (0.0-0.87); Eosinophils % 1.5 % (0.00-10.9); Hematocrit 29.8 VOL% (42.0-52.0); Hemoglobin 9.9 GM/DL (14.0-18.0); Immature Granulocytes % 1.3 %; Immature Granulocytes Absolute 0.07 #; Lymphocytes # 2.3 10*3/uL (1.4-4.0); Lymphocytes % 43.3 % (21.2-54.2); Mean Corpuscular HGB Conc 33.2 GM/DL (32-36); Mean Corpuscular Hemoglobin 32 PG (27-34); Mean Corpuscular Volume 96.1 FL (87-102); Mean Platelet Volume 11.6 FL (9.6-12.0); Monocytes # 0.4 10*3/uL (0.11-0.8); Monocytes % 7.1 % (1.7-12.7); Neutrophils # 2.4 10*3/uL (1.4-7.4); Neutrophils % 46.4 % (38.7-73.9); Platelet Count 234 T/CUMM (130-400); Red Cell Distribution Width 13.8 % (9.3-17.3); White Blood Count 5.2 T/CUMM (4-12)
[2016-09-30 06:40] LABS: Calcium 8.6 MG/DL (8.5-10.1); Magnesium 1.8 MG/DL (1.8-2.4); Phosphorous 3.5 MG/DL (2.5-4.9)
[2016-09-30 06:42] LABS: Calcium 8.9 MG/DL (8.5-10.1); Magnesium 1.8 MG/DL (1.8-2.4)
[2016-09-30] MEDS: FENOFIBRATE 160 MG TABLET PO SCH (09:26)
[2016-09-30] MEDS: CARVEDILOL 3.125 MG TABLET PO SCH (09:29)
[2016-09-30] MEDS: DILTIAZEM CD 240 MG CAPSULE PO SCH (09:29)
[2016-09-30] MEDS: PANTOPRAZOLE 40 MG VIAL IV SCH (09:31)
[2016-09-30] MEDS: DIVALPROEX 500 MG TABLET PO SCH (09:40)
[2016-09-30] MEDS: INSULIN LISPRO 100 UNIT/ML SUBCUT SCH (09:40)
[2016-09-30] MEDS: THIAMINE IV SCH (09:46)
[2016-09-30] MEDS: SODIUM CHLORIDE 0.9% IV SCH (09:46)
[2016-09-30] MEDS: FOLIC ACID IV SCH (09:46)
--- NOTE | 2016-09-30 10:15 | Discharge Summary ---
Hospital Course - Hospital Course Hospital Course: Been taking care of this gentleman since 28 September he was admitted to the hospital on September 21 with acute pancreatitis. The best of my assessment is that the area information he did have moderate severe bedside index of severity of acute pancreatitis. He is done well initiated on n.p.o. and subsequently started on oral feedings. He had a repeat CT scan a few days after admission which shows increased inflammatory appearance of the pancreas. What I noticed that his lipase is still high but the patient's is symptoms at the bedside have totally abated. He now has serum creatinine of 1.0 mg percent his hemoglobin is stable at 9.9 g percent he has normal chest x-ray status is normal he is not acidotic bicarbonate of 26 electrolytes are normal and is maintaining food intake without any nausea and vomiting. Blood pressures are normal. Established will be discharged home however I strongly instructed the patient to have repeat CT scan [address] He should see his physician by next week to have them arrange for the CT scan. There is a possibility may be developing a pseudocyst given he is multiple recurrences of acute pancreatitis. He denies any alcohol intake in the mall. He does have some hypertriglyceridemia and has been using anti-hypertriglyceridemia medication at home he is also on atorvastatin at this admission which was given as 80 mg daily but I think she will be taken 20 mg daily. His blood sugars have also been high so besides the glimepiride he should be using basal insulin dosing with Levemir. This is included in new prescription. All his medications have been ordered for the patient; he is being discharged to go home today stable follow-up with physician by mid next week. Please refer to all the laboratory testing done in the hospital as summarized on the laboratory testing tab so refer to the progress notes that are enclosed in the documents tab for the admission of 09/21/2016 Diagnosis - Discharge Diagnosis (1) Diabetes mellitus type 2 in obese Status: Acute (2) Anemia Status: Acute (3) Recurrent acute pancreatitis Status: Acute Discharge Plan - Discharge Data Disposition: Disch To Home/Self Care Condition at Discharge: Stable Discharge Diet: diabetic diet, heart healthy, other (No fried foods) Activity: resume usual activities as tolerated Hygiene: no restrictions Weight Bearing at Discharge: full weight bearing Driving: no restrictions Contact your physician if you experience:: fever over 101, Difficulty voiding, Nausea/Vomiting, Shortness of breath, pain uncontrolled by pain medications - Discharge Medications New Insulin Glargine [Lantus] 20 unit SUBCUT BEDTIME #1000 unit Atorvastatin [Lipitor] 20 mg PO BEDTIME #30 tablet Continue Carvedilol [Coreg] 3.125 mg PO BID tablet Metoclopramide Tab [Reglan Tab] 5 mg PO ACHS #40 tablet Albuterol Sulfate [Ventolin HFA] 2 puff INH Q4H PRN PRN Reason: Shortness Of Breath/Wheezing Citalopram [CeleXA] 40 mg PO BEDTIME Pantoprazole Tab [Protonix Tab] 40 mg PO DAILY Polyethylene Glycol Powder [Miralax] 17 gm PO DAILY ALPRAZolam [Xanax] 1 mg PO BID PRN PRN Reason: Anxiety Multivitamin with Minerals [Multivitamins with Minerals] 1 each PO DAILY metFORMIN [Glucophage] 500 mg PO BID Fenofibrate [Tricor] 160 mg PO DAILY Dicyclomine Cap/Tab [Bentyl Cap/Tab] 20 mg PO QID PRN #20 tablet PRN Reason: Abdominal Pain Ondansetron [Ondansetron Odt] 8 mg PO Q4H PRN #10 tab.rapdis PRN Reason: Nausea dilTIAZem HCl [Cartia XT] 240 mg PO BID Divalproex Sodium 500 mg PO BID Glimepiride 1 mg PO QAM - Follow Up or Referral - Forms/Instructions Exam - Constitutional Vitals: Period Temp Pulse Resp BP Sys/[place] Pulse Ox Last 24 Hr 97 F-98.5 F 58-100 18-22 103-127/13-69 92-98 General appearance: over weight - Head Head exam: Present: normocephalic - Eye Eye exam: Present: EOMI, other (Anicteric sclera) Pupils: Present: HELEN - ENT ENT exam: Present: normal exam - Neck Neck exam: Present: normal inspection - Respiratory Respiratory exam: Present: clear to auscultation bilaterally - Cardiovascular Cardiovascular exam: Present: regular rate and rhythm - GI/Abdominal GI/Abdominal exam: Present: normal bowel sounds, soft, other (Multiple surgical scars on the abdomen from prior laparotomies to manage his recurrent pancreatitis) - Extremities Exam Extremities exam: Present: full ROM - Neurological Exam Neurological exam: Present: alert, oriented X3, CN II-XII intact - Psychiatric Psychiatric exam: Present: normal affect, normal mood - Skin Skin exam: Present: normal color, warm, dry Discharge Results Procedures and tests throughout hospitalization: Pending Orders 09/24/16 13:00 Occult Blood, Stool Stat Labs on day of discharge: Labs from last 24 hours 09/30/16 09/30/16 09/30/16 07:22 05:47 05:47 WBC 5.2 RBC 3.10 L Hgb 9.9 L Hct 29.8 L MCV 96.1 MCH 32 MCHC 33.2 RDW 13.8 Plt Count 234 MPV 11.6 Neut % (Auto) 46.4 Lymph % (Auto) 43.3 [place] % (Auto) 7.1 Eos % (Auto) 1.5 Baso % (Auto) 0.4 Neut # (Auto) 2.4 Lymph # (Auto) 2.3 [place] # (Auto) 0.4 Eos # (Auto) 0.1 Baso # (Auto) 0.0 Immature Gran % 1.3 Nucleated RBC % 0.0 Immature Gran # 0.07 Nucleated RBCs # 0.00 Immature Plt Fraction 0.0 Sodium 136 Potassium 4.0 Chloride 102 Carbon Dioxide 26 Anion Gap 12.0 BUN 12 Creatinine 1.00 GFR Calculation 153 BUN/Creatinine Ratio 12.00 Glucose 318 H POC Glucose 309 H Hemoglobin A1c Calculated Osmolality 283.0 Calcium 8.9 Phosphorus Magnesium 1.8 Triglycerides Lipase 1773.0 H D 09/30/16 09/30/16 09/29/16 05:47 05:45 20:27 WBC RBC Hgb Hct MCV MCH MCHC RDW Plt Count MPV Neut % (Auto) Lymph % (Auto) [place] % (Auto) Eos % (Auto) Baso % (Auto) Neut # (Auto) Lymph # (Auto) [place] # (Auto) Eos # (Auto) Baso # (Auto) Immature Gran % Nucleated RBC % Immature Gran # Nucleated RBCs # Immature Plt Fraction Sodium 136 Potassium 4.0 Chloride 102 Carbon Dioxide 27 Anion Gap 11.0 BUN 12 Creatinine 1.10 GFR Calculation 136 BUN/Creatinine Ratio 10.00 Glucose 315 H POC Glucose 285 H Hemoglobin A1c 9.0 H Calculated Osmolality 283.0 Calcium 8.6 Phosphorus 3.5 Magnesium 1.8 Triglycerides 477 H Lipase 09/29/16 09/29/16 09/29/16 15:44 12:07 11:40 WBC RBC Hgb Hct MCV MCH MCHC RDW Plt Count MPV Neut % (Auto) Lymph % (Auto) [place] % (Auto) Eos % (Auto) Baso % (Auto) Neut # (Auto) Lymph # (Auto) [place] # (Auto) Eos # (Auto) Baso # (Auto) Immature Gran % Nucleated RBC % Immature Gran # Nucleated RBCs # Immature Plt Fraction Sodium Potassium Chloride Carbon Dioxide Anion Gap BUN Creatinine GFR Calculation BUN/Creatinine Ratio Glucose POC Glucose 338 H 339 H 289 H Hemoglobin A1c Calculated Osmolality Calcium Phosphorus Magnesium Triglycerides Lipase 09/29/16 07:55 WBC RBC Hgb Hct MCV MCH MCHC RDW Plt Count MPV Neut % (Auto) Lymph % (Auto) [place] % (Auto) Eos % (Auto) Baso % (Auto) Neut # (Auto) Lymph # (Auto) [place] # (Auto) Eos # (Auto) Baso # (Auto) Immature Gran % Nucleated RBC % Immature Gran # Nucleated RBCs # Immature Plt Fraction Sodium Potassium Chloride Carbon Dioxide Anion Gap BUN Creatinine GFR Calculation BUN/Creatinine Ratio Glucose POC Glucose 231 H Hemoglobin A1c Calculated Osmolality Calcium Phosphorus Magnesium Triglycerides Lipase DS: Provider Date of admission: 09/21/16 14:53 Primary care physician: . No PCP Attending physician on admission: Carolyn Khan MD Consults: 09/21/16 16:41 Consult to [facility], Educator [CONS] Routine Reason for Assistant Finance Director: Re-education 09/22/16 11:24 Consult to Physician [CONS] Routine Comment: silvestre del valle Consulting Provider: Jerrod Price Consulting Provider Notified: Yes When should Consulting Provider be notified: Now Consult to Specialist Group: Internal Medicine When should Consulting Provider be notified: Now Person Notified: Dr Narayanan Date Notified: 09/22/16 Time Notified: 10:30 09/25/16 09:29 Consult to Dietitian [CONS] Routine Reason for Dietitian: TPN/PPN-Initiate/Manage Consult Comment: Start PPN- can stop fluids and banana bag if replaced by PPN Discharging clinician: Alex Villalpando MD
[2016-09-30 11:42] VITALS: BP 116/69
== END 2016-09-30 11:45 | disposition home or self-care (01) | DRG 282 ==
LOC: EDBD → EDUNIT# → N.ED 12:53 → SUATTDRO 14:53 → N.EDINP 15:35 → N.2E 16:00
PROVIDERS: ADMIT Internal Medicine; ATTEND Internal Medicine Infectious Disease

== ENCOUNTER 2017-03-21 15:01 | Inpatient (IN) ==
[2017-03-21] MEDS ORDERED: HYDROmorphone 2 MG/1 ML VIAL IV STA (15:26)
[2017-03-21] MEDS ORDERED: HYDROmorphone 2 MG/1 ML VIAL ONE ×2 (15:32→19:58)
[2017-03-21 16:37] LABS: Albumin 4.1 G/DL (3.4-5.0); Bilirubin,Total 2.6 MG/DL (0.2-1.0); Calcium 7.2 MG/DL (8.5-10.1); Lactic Acid 1.6 MMOL/L (0.4-2.0); Osmolality,Calculated 275.1 MOS/KG (273-304); Potassium 4.3 MMOL/L (3.5-5.1); Total Protein 8.6 G/DL (6.4-8.3)
[2017-03-21 16:42] LABS: Basophils % 0.4 % (0.0-0.8); Eosinophils # 0.2 10*3/uL (0.0-0.87); Eosinophils % 2.2 % (0.00-10.9); Hemoglobin 13.3 GM/DL (14.0-18.0); Immature Granulocytes % 0.6 %; Immature Granulocytes Absolute 0.06 #; Lymphocytes # 1.5 10*3/uL (1.4-4.0); Lymphocytes % 14.3 % (21.2-54.2); Mean Corpuscular HGB Conc 35.9 GM/DL (32-36); Mean Corpuscular Hemoglobin 34 PG (27-34); Mean Corpuscular Volume 95.1 FL (87-102); Mean Platelet Volume 11.9 FL (9.6-12.0); Monocytes # 0.4 10*3/uL (0.11-0.8); Monocytes % 3.3 % (1.7-12.7); NRBC # 0.05 10*3/uL; Neutrophils # 8.5 10*3/uL (1.4-7.4); Neutrophils % 79.2 % (38.7-73.9); Platelet Count 261 T/CUMM (130-400); Red Blood Count 3.89 MC/CUMM (3.8-5.5); Red Cell Distribution Width 11.6 % (9.3-17.3); White Blood Count 10.7 T/CUMM (4-12)
[2017-03-21 16:44] LABS: Apearance,Urine CLEAR (Clear); Bilirubin,Urine Negative (Negative); Blood, Urine Negative (Negative); Glucose,Urine (UA) >=500 mg/dL (Negative); Ketones,Urine 20 mg/dL (Negative); Nitrite,Urine Negative (Negative); Protein,Urine 100 MG/DL; RBC,Urine <1 /HPF (0-4); Urine Color Yellow (Yellow); Urine Specific Gravity 1.027 (1.001-1.035); Urine Urobilinogen < 2.0 EU/DL (0.2-1.0); WBC,Urine 1 /HPF (0-6)
[2017-03-21] MEDS ORDERED: INSULIN LISPRO 100 UNIT/ML SUBCUT STA (17:15)
[2017-03-21] MEDS ORDERED: INSULIN LISPRO 100 UNIT/ML SUBCUT ONE (17:21)
[2017-03-21] MEDS ORDERED: HYDROmorphone 2 MG/1 ML VIAL IV PRN (18:49)
[2017-03-21] MEDS ORDERED: GLUCAGON 1 MG VIAL IM PRN (18:50)
[2017-03-21] MEDS ORDERED: hydrALAZINE 20 MG/1 ML VIAL IV PRN (18:51)
[2017-03-21] MEDS ORDERED: ONDANSETRON 4 MG/2 ML VIAL ONE (19:59)
[2017-03-21] MEDS: ONDANSETRON 4 MG/2 ML VIAL IV PRN (20:03)
[2017-03-21] MEDS ORDERED: INSULIN GLARGINE 100 UNIT/ML SUBCUT SCH (21:00)
[2017-03-21] MEDS ORDERED: BISACODYL 5 MG TABLET PO PRN (21:48)
[2017-03-21] MEDS ORDERED: BISACODYL 10 MG SUPP RECTAL ONE (22:00)
[2017-03-21] MEDS ORDERED: HYDROmorphone 2 MG/1 ML VIAL IV ONE (22:00)
[2017-03-21] MEDS: MULTIVITAMIN INJ 10 ML in SODIUM CHLORIDE 0.45% 1,000 ML IV SCH (22:11)
[2017-03-21] MEDS: ENOXAPARIN 40 MG/0.4 ML SYRINGE SUBCUT SCH (22:12)
[2017-03-21] MEDS: SODIUM CHLORIDE 0.9% 1,000 ML IV SCH (22:12)
[2017-03-21] MEDS: HYDROmorphone 2 MG/1 ML VIAL IV PRN (23:21)
[2017-03-21] MEDS: INSULIN LISPRO 100 UNIT/ML SUBCUT SCH (23:22)
[2017-03-22] MEDS: HYDROmorphone 2 MG/1 ML VIAL IV PRN ×2 (02:02→10:46)
[2017-03-22] MEDS: SODIUM CHLORIDE 0.9% 1,000 ML IV SCH ×6 (02:04→17:57)
[2017-03-22] MEDS: INSULIN LISPRO 100 UNIT/ML SUBCUT SCH ×2 (06:02→11:07)
[2017-03-22 06:20] LABS: Basophils % 0.7 % (0.0-0.8); Eosinophils % 0.2 % (0.00-10.9); Hematocrit 53.2 VOL% (42.0-52.0); Immature Granulocytes % 0.2 %; Immature Granulocytes Absolute 0.01 #; Lymphocytes # 1.2 10*3/uL (1.4-4.0); Lymphocytes % 27.6 % (21.2-54.2); Mean Corpuscular HGB Conc 35.7 GM/DL (32-36); Mean Corpuscular Hemoglobin 34 PG (27-34); Mean Corpuscular Volume 94.7 FL (87-102); Mean Platelet Volume 12.3 FL (9.6-12.0); Monocytes # 0.3 10*3/uL (0.11-0.8); Monocytes % 6.4 % (1.7-12.7); Neutrophils # 2.9 10*3/uL (1.4-7.4); Neutrophils % 64.9 % (38.7-73.9); Platelet Count 349 T/CUMM (130-400); Red Blood Count 5.62 MC/CUMM (3.8-5.5); White Blood Count 4.5 T/CUMM (4-12)
[2017-03-22 06:44] LABS: Giant Platelets Few; Platelet Estimate Adequate
[2017-03-22 06:55] LABS: Magnesium 2.6 MG/DL (1.8-2.4)
[2017-03-22 08:29] LABS: Albumin 3.9 G/DL (3.4-5.0); Bilirubin,Total 1.2 MG/DL (0.2-1.0); Osmolality,Calculated 286.2 MOS/KG (273-304); Potassium 5.8 MMOL/L (3.5-5.1); Risk Ratio 12.17; Total Protein 7.6 G/DL (6.4-8.3); VLDL CHOLESTEROL 490.4 MG/DL
[2017-03-22] MEDS ORDERED: INSULIN GLARGINE 100 UNIT/ML SUBCUT ONE (08:56)
[2017-03-22] MEDS ORDERED: INFLUENZA VIRUS VACCINE 0.5 ML SYRINGE IM ONE (09:00)
[2017-03-22] MEDS: PANTOPRAZOLE 40 MG VIAL IV SCH (09:34)
[2017-03-22] MEDS: THIAMINE 200 MG/2 ML VIAL IV SCH (09:36)
[2017-03-22] MEDS: ACETAMINOPHEN 325 MG TABLET PO PRN ×2 (09:39→23:08)
[2017-03-22] MEDS ORDERED: KETOROLAC 30 MG/1 ML VIAL IV PRN (10:01)
[2017-03-22] MEDS: ONDANSETRON 4 MG/2 ML VIAL IV PRN (10:34)
[2017-03-22] MEDS ORDERED: CALCIUM GLUCONATE 2,000 MG in SODIUM CHLORIDE 0.9% 100 ML IV ONE ×2 (10:50→16:45)
[2017-03-22] MEDS: PHENYLEPHRINE DRIP 40 MG/250 ML PREMIX IV SCH ×4 (11:43→18:06)
[2017-03-22] MEDS: DIVALPROEX 500 MG TABLET PO SCH ×2 (11:43→21:56)
[2017-03-22] MEDS ORDERED: SODIUM CHLORIDE 0.9% 2,000 ML IV ONE ×2 (11:44→15:55)
[2017-03-22 11:59] LABS: ABG Base Excess -17.2 MMOL/L (-2.5-2.5); ABG HCO3 8.2 MMOL/L (20-26); ABG Oxygen Saturation 97.4 % (95-100); ABG PO2 119.4 MM HG (80-95); ABG TCO2 8.8 MMOL/L (23-27)
[2017-03-22 12:00] LABS: ABG PH 7.207 (7.35-7.45)
[2017-03-22] MEDS ORDERED: MIDAZOLAM 2 MG/2 ML VIAL ONE (12:18)
[2017-03-22] MEDS ORDERED: CALCIUM CHLORIDE 1,000 MG/10 ML SYRINGE IV ONE ×4 (12:35→17:28)
[2017-03-22] MEDS ORDERED: SODIUM BICARBONATE 50 MEQ/50 ML SYRINGE IV ONE ×2 (12:35→13:07)
[2017-03-22] MEDS ORDERED: MIDAZOLAM 10 MG/2 ML VIAL ONE (12:39)
[2017-03-22] MEDS: fentaNYL INJ 1,250 MCG in SODIUM CHLORIDE 0.9% 225 ML IV SCH ×2 (13:03→23:18)
[2017-03-22] MEDS: MIDAZOLAM 10 MG/2 ML VIAL IV PRN ×2 (13:05→13:06)
[2017-03-22] MEDS: MIDAZOLAM 100 MG in SODIUM CHLORIDE 0.9% 80 ML IV SCH (13:06)
[2017-03-22 13:12] LABS: ABG Base Excess -11.1 MMOL/L (-2.5-2.5); ABG Oxygen Saturation 99.8 % (95-100); ABG PCO2 33.6 MM HG (35-48); ABG PH 7.263 (7.35-7.45); ABG TCO2 13.1 MMOL/L (23-27)
[2017-03-22 13:13] LABS: Allen Test Positive; Pt O2 Delivery Device Ventilator
[2017-03-22] MEDS: INSULIN REGULAR DRIP 100 ML IV SCH ×2 (13:14→23:17)
[2017-03-22 14:56] LABS: Amorphous Crystals,Urine Occasional /HPF (Few); Apearance,Urine CLOUDY (Clear); Bacteria,Urine Many /HPF (Few); Bilirubin,Urine Negative (Negative); Blood, Urine Moderate mg/dL (Negative); Glucose,Urine (UA) >=500 mg/dL (Negative); Ketones,Urine Negative (Negative); Nitrite,Urine Negative (Negative); Protein,Urine 100 MG/DL; Sperm,Urine Few /HPF (Negative); Urine Color Amber (Yellow); Urine Specific Gravity 1.008 (1.001-1.035); Urine Urobilinogen < 2.0 EU/DL (0.2-1.0)
[2017-03-22] MEDS ORDERED: INSULIN GLARGINE 100 UNIT/ML SUBCUT SCH (15:00)
[2017-03-22] MEDS ORDERED: ATROPINE 1 MG/10 ML SYRINGE IV PRN (15:24)
[2017-03-22] MEDS: DOPamine 800 MG/250 ML PREMIX IV SCH (15:32)
[2017-03-22] MEDS ORDERED: NOREPINEPHRINE 4 MG/4 ML VIAL IV ONE (16:05)
[2017-03-22] MEDS: NOREPINEPHRINE 8 MG in SODIUM CHLORIDE 0.9% 242 ML IV SCH ×2 (16:10→22:30)
[2017-03-22 16:20] LABS: Hepatitis A Ab IgM Quant 0.12 Index; Hepatitis A Ab IgM Result Negative (Negative); Hepatitis B Core IgM Quant 0.15 Index; Hepatitis B Core IgM Result Negative (Negative); Hepatitis B Surface Ag Quant < 0.10 Index; Hepatitis B Surface Ag Result Negative (Negative); Hepatitis C Virus Ab Quant 0.04 Index; Hepatitis C Virus Ab Result Negative (Negative)
[2017-03-22 17:09] LABS: Sodium 130 MMOL/L (136-145)
[2017-03-22 17:11] LABS: Calcium 6.5 MG/DL (8.5-10.1)
[2017-03-22 17:14] LABS: ABG Base Excess -11.4 MMOL/L (-2.5-2.5); ABG HCO3 15.8 MMOL/L (20-26); ABG Oxygen Saturation 99.4 % (95-100); ABG PCO2 31.9 MM HG (35-48); ABG TCO2 12.4 MMOL/L (23-27); Allen Test Positive; Pt O2 Delivery Device Ventilator
[2017-03-22 17:17] LABS: Blood Urea Nitrogen 28 MG/DL (7-18); Osmolality,Calculated 298.8 MOS/KG (273-304)
[2017-03-22 17:22] LABS: Glucose 684 MG/DL (74-106)
[2017-03-22 17:24] LABS: Potassium > 8.0 MMOL/L (3.5-5.1)
[2017-03-22] MEDS ORDERED: ALBUMIN 25% 25 GM in PREMIX 1 EACH IV ONE ×2 (17:52→19:00)
[2017-03-22 18:09] LABS: Lactic Acid 4.4 MMOL/L (0.4-2.0)
[2017-03-22] MEDS ORDERED: HEPARIN 10,000 UNIT/10 ML VIAL IV PRN (18:15)
[2017-03-22] MEDS: SODIUM BICARB INJ 100 MEQ in DEXTROSE 5% NACL 0.22% 1,000 ML IV SCH (18:25)
[2017-03-22] MEDS: PHENYLEPHRINE INJ 160 MG in SODIUM CHLORIDE 0.9% 234 ML IV SCH (19:58)
[2017-03-22] MEDS: ENOXAPARIN 40 MG/0.4 ML SYRINGE SUBCUT SCH (21:54)
[2017-03-22] MEDS: CITALOPRAM 40 MG TABLET PO SCH (21:55)
[2017-03-22] MEDS: MULTIVITAMIN INJ 10 ML in SODIUM CHLORIDE 0.45% 1,000 ML IV SCH (22:07)
[2017-03-23] MEDS ORDERED: ACETAMINOPHEN 325 MG TABLET PO ONE (01:00)
[2017-03-23] MEDS: SODIUM BICARB INJ 100 MEQ in DEXTROSE 5% NACL 0.22% 1,000 ML IV SCH ×5 (01:57→23:59)
[2017-03-23] MEDS: PHENYLEPHRINE INJ 160 MG in SODIUM CHLORIDE 0.9% 234 ML IV SCH ×4 (03:23→19:01)
[2017-03-23 04:10] LABS: Basophils % 0.6 % (0.0-0.8); Eosinophils % 0.1 % (0.00-10.9); Hematocrit 45.9 VOL% (42.0-52.0); Immature Granulocytes % 0.4 %; Immature Granulocytes Absolute 0.03 #; Lymphocytes # 2.7 10*3/uL (1.4-4.0); Mean Corpuscular HGB Conc 32.7 GM/DL (32-36); Mean Corpuscular Hemoglobin 33 PG (27-34); Mean Corpuscular Volume 100.7 FL (87-102); Mean Platelet Volume 11.7 FL (9.6-12.0); Monocytes # 0.3 10*3/uL (0.11-0.8); Monocytes % 4.5 % (1.7-12.7); NRBC # 0.05 10*3/uL; Neutrophils % 56.4 % (38.7-73.9); Platelet Count 190 T/CUMM (130-400); Red Blood Count 4.56 MC/CUMM (3.8-5.5); Red Cell Distribution Width 12.7 % (9.3-17.3); White Blood Count 7.2 T/CUMM (4-12)
[2017-03-23 04:18] LABS: ABG Base Excess -6.6 MMOL/L (-2.5-2.5); ABG HCO3 17.5 MMOL/L (20-26); ABG PCO2 31.5 MM HG (35-48); ABG PH 7.362 (7.35-7.45); ABG PO2 205.9 MM HG (80-95); ABG TCO2 18.4 MMOL/L (23-27); Allen Test Positive; Pt O2 Delivery Device Ventilator
[2017-03-23 04:57] LABS: Atypical Lymphocytes Few; Band Neutrophils 14 % (0-10); Lymphocytes 59 % (20-55); Segmented Neutrophils 11 % (50-85); Total Cells Counted 100
[2017-03-23 04:58] LABS: Macrocytosis 2+; Platelet Estimate Normal
[2017-03-23] MEDS: fentaNYL INJ 1,250 MCG in SODIUM CHLORIDE 0.9% 225 ML IV SCH ×4 (05:15→22:33)
[2017-03-23] MEDS: MIDAZOLAM 100 MG in SODIUM CHLORIDE 0.9% 80 ML IV SCH ×2 (05:15→16:53)
[2017-03-23] MEDS: ACETAMINOPHEN 325 MG TABLET PO PRN ×2 (05:25→11:37)
[2017-03-23] MEDS: INSULIN REGULAR DRIP 100 ML IV SCH ×4 (05:40→21:04)
[2017-03-23] MEDS ORDERED: PROPOFOL 200 MG/20 ML VIAL IV ONE (07:09)
[2017-03-23] MEDS ORDERED: SUCCINYLCHOLINE 200 MG/10 ML VIAL ONE (07:10)
[2017-03-23] MEDS ORDERED: PIPERACILLIN/TAZOBACTAM 2,250 MG in SODIUM CHLORIDE 0.9% 100 ML IV SCH (08:00)
[2017-03-23] MEDS: DIVALPROEX 500 MG TABLET PO SCH ×2 (08:05→21:41)
[2017-03-23] MEDS: THIAMINE 200 MG/2 ML VIAL IV SCH (08:05)
[2017-03-23] MEDS: PANTOPRAZOLE 40 MG VIAL IV SCH (08:05)
[2017-03-23 08:24] LABS: Bilirubin,Total 1.2 MG/DL (0.2-1.0); Calcium 6.6 MG/DL (8.5-10.1); Total Protein 5.9 G/DL (6.4-8.3)
[2017-03-23 08:25] LABS: Albumin 3.5 G/DL (3.4-5.0); Osmolality,Calculated 283.7 MOS/KG (273-304); Potassium 5.2 MMOL/L (3.5-5.1)
[2017-03-23] MEDS ORDERED: SODIUM CHLORIDE 0.9% 1,000 ML IV PRN (09:45)
[2017-03-23] MEDS ORDERED: SODIUM CHLORIDE 0.9% 500 ML IV ONE (09:49)
[2017-03-23] MEDS ORDERED: CALCIUM CHLORIDE 1,000 MG/10 ML SYRINGE IV ONE (09:57)
[2017-03-23] MEDS: PIPERACILLIN/TAZOBACTAM 3.375 MG in SODIUM CHLORIDE 0.9% 100 ML IV SCH (10:02)
[2017-03-23] MEDS ORDERED: PHENYLEPHRINE DRIP 40 MG/250 ML PREMIX IV ONE (10:26)
[2017-03-23 11:56] LABS: Calcium 8.1 MG/DL (8.5-10.1); Magnesium 2.5 MG/DL (1.8-2.4); Osmolality,Calculated 287.4 MOS/KG (273-304); Potassium 4.2 MMOL/L (3.5-5.1)
[2017-03-23] MEDS ORDERED: VANCOMYCIN INJ 2,000 MG in SODIUM CHLORIDE 0.9% 500 ML IV PRN (15:19)
[2017-03-23] MEDS: DOPamine 800 MG/250 ML PREMIX IV SCH (16:57)
[2017-03-23 18:16] LABS: ABG Base Excess -10.5 MMOL/L (-2.5-2.5); ABG HCO3 16.4 MMOL/L (20-26); ABG Oxygen Saturation 97.2 % (95-100); ABG PH 7.259 (7.35-7.45); ABG TCO2 13.8 MMOL/L (23-27)
[2017-03-23] MEDS: NOREPINEPHRINE 8 MG in SODIUM CHLORIDE 0.9% 242 ML IV SCH (18:59)
[2017-03-23] MEDS ORDERED: VANCOMYCIN INJ 2,000 MG in SODIUM CHLORIDE 0.9% 500 ML IV ONE (20:00)
[2017-03-23] MEDS: CITALOPRAM 40 MG TABLET PO SCH (21:41)
[2017-03-23] MEDS ORDERED: CALCIUM GLUCONATE 2,000 MG in SODIUM CHLORIDE 0.9% 100 ML IV ONE (22:00)
[2017-03-23] MEDS ORDERED: SODIUM BICARBONATE 50 MEQ/50 ML SYRINGE IV ONE (22:00)
[2017-03-23] MEDS: ENOXAPARIN 40 MG/0.4 ML SYRINGE SUBCUT SCH (22:15)
[2017-03-23] MEDS: MULTIVITAMIN INJ 10 ML in SODIUM CHLORIDE 0.45% 1,000 ML IV SCH (22:54)
[2017-03-24] MEDS: NOREPINEPHRINE 8 MG in SODIUM CHLORIDE 0.9% 242 ML IV SCH ×2 (01:25→15:52)
[2017-03-24 01:40] LABS: ABG Base Excess -8.7 MMOL/L (-2.5-2.5); ABG HCO3 17.4 MMOL/L (20-26); ABG Oxygen Saturation 94.8 % (95-100); ABG PCO2 40.2 MM HG (35-48); ABG PH 7.259 (7.35-7.45); ABG PO2 86.3 MM HG (80-95); ABG TCO2 16.4 MMOL/L (23-27); Allen Test Positive; Pt O2 Delivery Device Ventilator
[2017-03-24] MEDS: PIPERACILLIN/TAZOBACTAM 3.375 MG in SODIUM CHLORIDE 0.9% 100 ML IV SCH ×2 (01:48→14:50)
[2017-03-24] MEDS: PHENYLEPHRINE INJ 160 MG in SODIUM CHLORIDE 0.9% 234 ML IV SCH ×3 (02:30→17:36)
[2017-03-24 04:06] LABS: ABG Base Excess -7.6 MMOL/L (-2.5-2.5); ABG HCO3 18.3 MMOL/L (20-26); ABG Oxygen Saturation 96.2 % (95-100); ABG PCO2 41.9 MM HG (35-48); ABG PH 7.268 (7.35-7.45); ABG PO2 98.3 MM HG (80-95); ABG TCO2 17.2 MMOL/L (23-27); Allen Test Positive; Pt O2 Delivery Device Ventilator
[2017-03-24] MEDS: fentaNYL INJ 1,250 MCG in SODIUM CHLORIDE 0.9% 225 ML IV SCH ×5 (04:12→21:39)
[2017-03-24] MEDS: SODIUM BICARB INJ 100 MEQ in DEXTROSE 5% NACL 0.22% 1,000 ML IV SCH ×5 (04:43→20:21)
[2017-03-24] MEDS: MIDAZOLAM 100 MG in SODIUM CHLORIDE 0.9% 80 ML IV SCH ×3 (05:53→18:23)
[2017-03-24 06:54] LABS: Calcium 6.7 MG/DL (8.5-10.1); Osmolality,Calculated 284.4 MOS/KG (273-304); Potassium 4.7 MMOL/L (3.5-5.1)
[2017-03-24 07:14] LABS: Basophils % 0.6 % (0.0-0.8); Eosinophils # 0.1 10*3/uL (0.0-0.87); Hematocrit 28.1 VOL% (42.0-52.0); Immature Granulocytes Absolute 0.07 #; Lymphocytes # 0.9 10*3/uL (1.4-4.0); Lymphocytes % 13.1 % (21.2-54.2); Mean Corpuscular HGB Conc 33.1 GM/DL (32-36); Mean Corpuscular Hemoglobin 34 PG (27-34); Mean Corpuscular Volume 101.1 FL (87-102); Mean Platelet Volume 12.4 FL (9.6-12.0); Monocytes # 0.2 10*3/uL (0.11-0.8); Monocytes % 2.5 % (1.7-12.7); NRBC # 0.31 10*3/uL; Neutrophils # 5.6 10*3/uL (1.4-7.4); Neutrophils % 81.8 % (38.7-73.9); Platelet Count 99 T/CUMM (130-400); Red Blood Count 2.78 MC/CUMM (3.8-5.5); White Blood Count 6.9 T/CUMM (4-12)
[2017-03-24 07:16] LABS: Hemoglobin 9.3 GM/DL (14.0-18.0)
[2017-03-24 08:34] LABS: Hypochromasia 2+; Macrocytosis 1+
[2017-03-24] MEDS: THIAMINE 200 MG/2 ML VIAL IV SCH (08:51)
[2017-03-24] MEDS: PANTOPRAZOLE 40 MG VIAL IV SCH ×2 (08:52→21:32)
[2017-03-24] MEDS: DIVALPROEX 500 MG TABLET PO SCH ×2 (09:06→20:17)
[2017-03-24] MEDS: INSULIN REGULAR DRIP 100 ML IV SCH ×3 (09:59→18:40)
[2017-03-24] MEDS ORDERED: SODIUM CHLORIDE 0.9% 1,000 ML IV PRN ×2 (13:07→14:30)
[2017-03-24] MEDS ORDERED: SODIUM BICARBONATE 50 MEQ/50 ML SYRINGE IV ONE (14:32)
[2017-03-24] MEDS ORDERED: VANCOMYCIN INJ 1,000 MG in SODIUM CHLORIDE 0.9% 250 ML IV PRN (15:00)
[2017-03-24] MEDS ORDERED: CALCIUM GLUCONATE 3,000 MG in SODIUM CHLORIDE 0.9% 250 ML IV ONE (15:30)
[2017-03-24] MEDS: CITALOPRAM 40 MG TABLET PO SCH (20:17)
[2017-03-24] MEDS: ENOXAPARIN 30 MG/0.3 ML SYRINGE SUBCUT SCH (21:32)
[2017-03-24] MEDS ORDERED: VANCOMYCIN INJ 1,000 MG in SODIUM CHLORIDE 0.9% 250 ML IV ONE (22:00)
[2017-03-24] MEDS: MULTIVITAMIN INJ 10 ML in SODIUM CHLORIDE 0.45% 1,000 ML IV SCH (23:00)
[2017-03-25] MEDS: PHENYLEPHRINE INJ 160 MG in SODIUM CHLORIDE 0.9% 234 ML IV SCH ×4 (01:18→20:48)
[2017-03-25] MEDS: fentaNYL INJ 1,250 MCG in SODIUM CHLORIDE 0.9% 225 ML IV SCH (03:13)
[2017-03-25] MEDS: PIPERACILLIN/TAZOBACTAM 3.375 MG in SODIUM CHLORIDE 0.9% 100 ML IV SCH ×2 (03:18→15:03)
[2017-03-25] MEDS: SODIUM BICARB INJ 100 MEQ in DEXTROSE 5% NACL 0.22% 1,000 ML IV SCH ×4 (03:43→18:43)
[2017-03-25 03:45] LABS: ABG Base Excess -0.9 MMOL/L (-2.5-2.5); ABG HCO3 24.2 MMOL/L (20-26); ABG Oxygen Saturation 95.7 % (95-100); ABG PH 7.379 (7.35-7.45); ABG PO2 88.9 MM HG (80-95); ABG TCO2 25.5 MMOL/L (23-27)
[2017-03-25 05:13] LABS: Basophils # 0.1 10*3/uL (0.0-0.2); Basophils % 0.5 % (0.0-0.8); Eosinophils # 0.4 10*3/uL (0.0-0.87); Eosinophils % 2.9 % (0.00-10.9); Hematocrit 27.3 VOL% (42.0-52.0); Immature Granulocytes % 9.8 %; Immature Granulocytes Absolute 1.25 #; Lymphocytes # 1.4 10*3/uL (1.4-4.0); Lymphocytes % 11.3 % (21.2-54.2); Mean Corpuscular Hemoglobin 33 PG (27-34); Mean Corpuscular Volume 100.4 FL (87-102); Mean Platelet Volume 12.8 FL (9.6-12.0); Monocytes # 0.8 10*3/uL (0.11-0.8); NRBC # 1.99 10*3/uL; Neutrophils # 8.9 10*3/uL (1.4-7.4); Neutrophils % 69.5 % (38.7-73.9); Platelet Count 107 T/CUMM (130-400); Red Blood Count 2.72 MC/CUMM (3.8-5.5); Red Cell Distribution Width 17.6 % (9.3-17.3); White Blood Count 12.8 T/CUMM (4-12)
[2017-03-25 05:38] LABS: Giant Platelets Few; Hypochromasia 1+; Ovalocytes Slight; Platelet Estimate Decreased
[2017-03-25 05:39] LABS: Macrocytosis Slight
[2017-03-25 06:33] LABS: Albumin 2.8 G/DL (3.4-5.0); Calcium 6.1 MG/DL (8.5-10.1); Osmolality,Calculated 284.2 MOS/KG (273-304); Potassium 4.6 MMOL/L (3.5-5.1); Total Protein 5.4 G/DL (6.4-8.3)
[2017-03-25] MEDS: MIDAZOLAM 100 MG in SODIUM CHLORIDE 0.9% 80 ML IV SCH ×2 (07:38→12:14)
[2017-03-25] MEDS: THIAMINE 200 MG/2 ML VIAL IV SCH (08:03)
[2017-03-25] MEDS: PANTOPRAZOLE 40 MG VIAL IV SCH ×2 (08:03→21:49)
[2017-03-25] MEDS: fentaNYL INJ 2,500 MCG in SODIUM CHLORIDE 0.9% 450 ML IV SCH (08:55)
[2017-03-25] MEDS: INSULIN REGULAR DRIP 100 ML IV SCH ×2 (11:08→15:15)
[2017-03-25] MEDS: DIVALPROEX 500 MG TABLET PO SCH ×2 (12:12→21:54)
[2017-03-25] MEDS: NOREPINEPHRINE 8 MG in SODIUM CHLORIDE 0.9% 242 ML IV SCH (16:41)
[2017-03-25] MEDS ORDERED: CALCIUM GLUCONATE 2,000 MG in SODIUM CHLORIDE 0.9% 100 ML IV ONE (18:00)
[2017-03-25] MEDS ORDERED: VANCOMYCIN INJ 1,000 MG in SODIUM CHLORIDE 0.9% 250 ML IV ONE (21:00)
[2017-03-25] MEDS: CITALOPRAM 40 MG TABLET PO SCH (21:49)
[2017-03-25] MEDS: ENOXAPARIN 30 MG/0.3 ML SYRINGE SUBCUT SCH (21:49)
[2017-03-25] MEDS: MULTIVITAMIN INJ 10 ML in SODIUM CHLORIDE 0.45% 1,000 ML IV SCH (21:54)
[2017-03-25 23:40] LABS: Basophils # 0.1 10*3/uL (0.0-0.2); Basophils % 0.5 % (0.0-0.8); Eosinophils # 0.6 10*3/uL (0.0-0.87); Eosinophils % 2.3 % (0.00-10.9); Hematocrit 24.3 VOL% (42.0-52.0); Immature Granulocytes % 20.9 %; Lymphocytes # 1.8 10*3/uL (1.4-4.0); Lymphocytes % 7.3 % (21.2-54.2); Mean Corpuscular HGB Conc 32.9 GM/DL (32-36); Mean Corpuscular Hemoglobin 34 PG (27-34); Mean Corpuscular Volume 102.1 FL (87-102); Mean Platelet Volume 12.9 FL (9.6-12.0); Monocytes # 1.3 10*3/uL (0.11-0.8); Monocytes % 5.2 % (1.7-12.7); NRBC # 5.02 10*3/uL; Neutrophils # 16.2 10*3/uL (1.4-7.4); Neutrophils % 63.8 % (38.7-73.9); Platelet Count 103 T/CUMM (130-400); Red Blood Count 2.38 MC/CUMM (3.8-5.5); Red Cell Distribution Width 19.6 % (9.3-17.3); White Blood Count 25.3 T/CUMM (4-12)
[2017-03-26 00:27] LABS: Acanthocytes Few; Anisocytosis 1+; Atypical Lymphocytes 1+; Band Neutrophils 33 % (0-10); Eosinophils 4 % (0-10); Lymphocytes 25 % (20-55); Macrocytosis 3+; Nucleated Red Blood Cells 22 (0-5); Platelet Estimate Decreased; Segmented Neutrophils 24 % (50-85); Total Cells Counted 100
[2017-03-26] MEDS: NOREPINEPHRINE 8 MG in SODIUM CHLORIDE 0.9% 242 ML IV SCH ×2 (00:31→16:21)
[2017-03-26 00:36] LABS: Albumin 2.5 G/DL (3.4-5.0); Osmolality,Calculated 283.4 MOS/KG (273-304); Total Protein 4.9 G/DL (6.4-8.3)
[2017-03-26 00:49] LABS: Troponin I Only 0.226 NG/ML (0.00-0.045)
[2017-03-26 00:50] LABS: Bilirubin,Total 16.9 MG/DL (0.2-1.0); Potassium 6.5 MMOL/L (3.5-5.1)
[2017-03-26] MEDS: DEXTROSE 50% 25 GM/50 ML VIAL IV PRN (01:12)
[2017-03-26] MEDS ORDERED: CALCIUM CHLORIDE 2,000 MG in SODIUM CHLORIDE 0.9% 100 ML IV ONE (01:27)
[2017-03-26] MEDS ORDERED: INSULIN REGULAR 100 UNIT/ML IV ONE ×2 (01:48→05:54)
[2017-03-26] MEDS ORDERED: DEXTROSE 50% 25 GM/50 ML VIAL IV ONE ×2 (01:48→05:54)
[2017-03-26] MEDS ORDERED: SODIUM BICARBONATE 50 MEQ/50 ML SYRINGE IV ONE ×3 (01:48→05:54)
[2017-03-26] MEDS: SODIUM BICARB INJ 100 MEQ in DEXTROSE 5% NACL 0.22% 1,000 ML IV SCH ×3 (02:19→16:22)
[2017-03-26] MEDS ORDERED: AMIODARONE INJ 150 MG in DEXTROSE 5% 100 ML IV ONE (02:43)
[2017-03-26] MEDS ORDERED: AMIODARONE 150 MG/3 ML VIAL ONE ×3 (02:43→03:02)
[2017-03-26] MEDS ORDERED: SODIUM POLYSTYRENE SULFATE 15 GM/60 ML BOTTLE PO STA (02:44)
[2017-03-26] MEDS ORDERED: AMIODARONE INJ 450 MG in DEXTROSE 5% 241 ML IV SCH (03:00)
[2017-03-26] MEDS ORDERED: SODIUM CHLORIDE 0.9% 100 ML IV ONE ×2 (03:28→04:02)
[2017-03-26] MEDS: PIPERACILLIN/TAZOBACTAM 3.375 MG in SODIUM CHLORIDE 0.9% 100 ML IV SCH ×2 (03:30→14:20)
[2017-03-26] MEDS: PHENYLEPHRINE INJ 160 MG in SODIUM CHLORIDE 0.9% 234 ML IV SCH ×3 (03:47→19:41)
[2017-03-26 03:58] LABS: ABG Base Excess -13.9 MMOL/L (-2.5-2.5); ABG HCO3 13.4 MMOL/L (20-26); ABG Oxygen Saturation 90.5 % (95-100); ABG PCO2 40.8 MM HG (35-48); ABG PH 7.149 (7.35-7.45); ABG TCO2 13.8 MMOL/L (23-27)
[2017-03-26] MEDS ORDERED: PIPERACILLIN/TAZOBACTAM 3,375 MG VIAL IV ONE (04:01)
[2017-03-26] MEDS ORDERED: SODIUM CHLORIDE 0.9% 1,000 ML IV PRN ×2 (04:08→14:01)
[2017-03-26] MEDS ORDERED: FUROSEMIDE 40 MG/4 ML VIAL IV ONE (04:10)
[2017-03-26] MEDS ORDERED: MORPHINE 2 MG/1 ML SYRINGE ONE (04:24)
[2017-03-26] MEDS ORDERED: ONDANSETRON 4 MG/2 ML VIAL ONE (04:24)
[2017-03-26 04:45] LABS: Basophils # 0.1 10*3/uL (0.0-0.2); Basophils % 0.3 % (0.0-0.8); Eosinophils # 0.5 10*3/uL (0.0-0.87); Eosinophils % 1.6 % (0.00-10.9); Hematocrit 23.7 VOL% (42.0-52.0); Hemoglobin 7.5 GM/DL (14.0-18.0); Lymphocytes # 1.6 10*3/uL (1.4-4.0); Lymphocytes % 5.4 % (21.2-54.2); Mean Corpuscular HGB Conc 31.6 GM/DL (32-36); Mean Corpuscular Hemoglobin 34 PG (27-34); Mean Corpuscular Volume 105.8 FL (87-102); Mean Platelet Volume 12.7 FL (9.6-12.0); Monocytes # 2.5 10*3/uL (0.11-0.8); Monocytes % 8.6 % (1.7-12.7); NRBC # 5.91 10*3/uL; Neutrophils # 17.7 10*3/uL (1.4-7.4); Neutrophils % 61.1 % (38.7-73.9); Platelet Count 105 T/CUMM (130-400); Red Blood Count 2.24 MC/CUMM (3.8-5.5); Red Cell Distribution Width 19.7 % (9.3-17.3); White Blood Count 29.1 T/CUMM (4-12)
[2017-03-26 05:22] LABS: Band Neutrophils 8 % (0-10); Eosinophils 4 % (0-10); Giant Platelets Few; Lymphocytes 15 % (20-55); Metamyelocytes 1 %; Myelocytes 2 %; Nucleated Red Blood Cells 21 (0-5); Platelet Estimate Decreased; Segmented Neutrophils 60 % (50-85); Total Cells Counted 100
[2017-03-26 05:23] LABS: Burr Cells Slight; Macrocytosis Slight; Ovalocytes Slight
[2017-03-26 05:28] LABS: Albumin 2.4 G/DL (3.4-5.0); Calcium 6.6 MG/DL (8.5-10.1); Osmolality,Calculated 285.4 MOS/KG (273-304); Total Protein 4.9 G/DL (6.4-8.3)
[2017-03-26 05:33] LABS: Bilirubin,Total 17.5 MG/DL (0.2-1.0); Potassium 6.3 MMOL/L (3.5-5.1)
[2017-03-26] MEDS ORDERED: SODIUM POLYSTYRENE SULFATE 15 GM/60 ML BOTTLE PO ONE (05:54)
[2017-03-26] MEDS ORDERED: CALCIUM CHLORIDE 1,000 MG/10 ML SYRINGE IV ONE (05:54)
[2017-03-26] MEDS ORDERED: LEVOFLOXACIN INJ 750 MG in PREMIX 1 EACH IV ONE (06:00)
[2017-03-26 06:32] LABS: ABG Base Excess -11.9 MMOL/L (-2.5-2.5); ABG HCO3 14.9 MMOL/L (20-26); ABG Oxygen Saturation 98.8 % (95-100); ABG PCO2 37.1 MM HG (35-48); ABG PH 7.215 (7.35-7.45); ABG TCO2 14.5 MMOL/L (23-27)
[2017-03-26] MEDS: DIVALPROEX 500 MG TABLET PO SCH ×2 (09:05→21:49)
[2017-03-26] MEDS: fentaNYL INJ 2,500 MCG in SODIUM CHLORIDE 0.9% 450 ML IV SCH (09:06)
[2017-03-26] MEDS: THIAMINE 200 MG/2 ML VIAL IV SCH (09:19)
[2017-03-26] MEDS: PANTOPRAZOLE 40 MG VIAL IV SCH ×2 (09:19→21:00)
[2017-03-26] MEDS: AMIODARONE INJ 450 MG in DEXTROSE 5% 241 ML IV SCH (10:35)
[2017-03-26] MEDS ORDERED: VANCOMYCIN INJ 1,250 MG in SODIUM CHLORIDE 0.9% 250 ML IV PRN (12:27)
[2017-03-26] MEDS: MIDAZOLAM 100 MG in SODIUM CHLORIDE 0.9% 80 ML IV SCH (12:32)
[2017-03-26] MEDS ORDERED: VANCOMYCIN INJ 1,250 MG in SODIUM CHLORIDE 0.9% 250 ML IV ONE (15:00)
[2017-03-26] MEDS: INSULIN REGULAR DRIP 100 ML IV SCH (16:16)
[2017-03-26] MEDS: MULTIVITAMIN INJ 10 ML in SODIUM CHLORIDE 0.45% 1,000 ML IV SCH (21:03)
[2017-03-26 22:03] LABS: ABG Base Excess -5.2 MMOL/L (-2.5-2.5); ABG HCO3 20.1 MMOL/L (20-26); ABG Oxygen Saturation 97.7 % (95-100); ABG PCO2 41.7 MM HG (35-48); ABG PH 7.305 (7.35-7.45); ABG TCO2 19.7 MMOL/L (23-27); Allen Test Positive; Pt O2 Delivery Device Ventilator
[2017-03-27] MEDS: AMIODARONE INJ 450 MG in DEXTROSE 5% 241 ML IV SCH ×2 (02:23→18:10)
[2017-03-27] MEDS: SODIUM BICARB INJ 100 MEQ in DEXTROSE 5% NACL 0.22% 1,000 ML IV SCH ×3 (02:25→18:12)
[2017-03-27] MEDS: PIPERACILLIN/TAZOBACTAM 3.375 MG in SODIUM CHLORIDE 0.9% 100 ML IV SCH ×2 (02:27→14:55)
[2017-03-27] MEDS: INSULIN REGULAR DRIP 100 ML IV SCH ×2 (04:48→16:49)
[2017-03-27 05:01] LABS: Basophils # 0.1 10*3/uL (0.0-0.2); Basophils % 0.4 % (0.0-0.8); Eosinophils # 0.4 10*3/uL (0.0-0.87); Eosinophils % 1.2 % (0.00-10.9); Hemoglobin 7.5 GM/DL (14.0-18.0); Immature Granulocytes % 14.6 %; Immature Granulocytes Absolute 4.14 #; Lymphocytes # 1.5 10*3/uL (1.4-4.0); Lymphocytes % 5.1 % (21.2-54.2); Mean Corpuscular HGB Conc 34.1 GM/DL (32-36); Mean Corpuscular Hemoglobin 33 PG (27-34); Mean Corpuscular Volume 95.7 FL (87-102); Mean Platelet Volume 13.3 FL (9.6-12.0); Monocytes # 1.6 10*3/uL (0.11-0.8); Monocytes % 5.5 % (1.7-12.7); Neutrophils # 20.8 10*3/uL (1.4-7.4); Neutrophils % 73.2 % (38.7-73.9); Platelet Count 74 T/CUMM (130-400); Red Cell Distribution Width 19.5 % (9.3-17.3); White Blood Count 28.4 T/CUMM (4-12)
[2017-03-27 05:06] LABS: ABG Base Excess -1.5 MMOL/L (-2.5-2.5); ABG HCO3 23.5 MMOL/L (20-26); ABG Oxygen Saturation 96.9 % (95-100); ABG PCO2 40.6 MM HG (35-48); ABG PO2 104.8 MM HG (80-95); ABG TCO2 24.7 MMOL/L (23-27); Allen Test Positive; Pt O2 Delivery Device Ventilator
[2017-03-27 05:20] LABS: Band Neutrophils 8 % (0-10); Eosinophils 1 % (0-10); Lymphocytes 12 % (20-55); Myelocytes 2 %; Nucleated Red Blood Cells 16 (0-5); Segmented Neutrophils 72 % (50-85); Total Cells Counted 100
[2017-03-27 05:21] LABS: Giant Platelets Few; Hypochromasia 1+; Macrocytosis Slight; Platelet Estimate Decreased
[2017-03-27 05:27] LABS: INR 1.5; PT Patient Result 15.4 SECS
[2017-03-27 06:24] LABS: Calcium 6.4 MG/DL (8.5-10.1); Osmolality,Calculated 288.5 MOS/KG (273-304); Osmolality,Calculated 290.5 MOS/KG (273-304); Potassium 4.6 MMOL/L (3.5-5.1)
[2017-03-27 07:05] LABS: Albumin 2.3 G/DL (3.4-5.0); Bilirubin,Direct 17.58 MG/DL (0.0-0.20); Total Protein 4.4 G/DL (6.4-8.3)
[2017-03-27 07:08] LABS: Bilirubin,Indirect 5.2 MG/DL (0.0-1.0); Bilirubin,Total 22.8 MG/DL (0.2-1.0)
[2017-03-27] MEDS: DIVALPROEX 500 MG TABLET PO SCH ×2 (08:43→20:47)
[2017-03-27] MEDS: PANTOPRAZOLE 40 MG VIAL IV SCH ×2 (08:57→20:46)
[2017-03-27] MEDS: THIAMINE 200 MG/2 ML VIAL IV SCH (08:58)
[2017-03-27] MEDS ORDERED: SODIUM CHLORIDE 0.9% 1,000 ML IV PRN (12:21)
[2017-03-27] MEDS: PHENYLEPHRINE INJ 160 MG in SODIUM CHLORIDE 0.9% 234 ML IV SCH ×2 (15:03→18:37)
[2017-03-27] MEDS ORDERED: VECURONIUM 10 MG VIAL IV ONE (16:47)
[2017-03-27] MEDS ORDERED: fentaNYL 100 MCG/2 ML VIAL IV ONE (20:40)
[2017-03-27] MEDS: MULTIVITAMIN INJ 10 ML in SODIUM CHLORIDE 0.45% 1,000 ML IV SCH (23:24)
[2017-03-28] MEDS: SODIUM BICARB INJ 100 MEQ in DEXTROSE 5% NACL 0.22% 1,000 ML IV SCH ×5 (01:41→16:59)
[2017-03-28] MEDS: PIPERACILLIN/TAZOBACTAM 3.375 MG in SODIUM CHLORIDE 0.9% 100 ML IV SCH ×2 (01:49→13:49)
[2017-03-28] MEDS: PHENYLEPHRINE INJ 160 MG in SODIUM CHLORIDE 0.9% 234 ML IV SCH ×4 (01:52→22:03)
[2017-03-28 03:59] LABS: Allen Test Positive; Pt O2 Delivery Device Ventilator
[2017-03-28 04:00] LABS: ABG Base Excess -8.1 MMOL/L (-2.5-2.5); ABG HCO3 17.7 MMOL/L (20-26); ABG Oxygen Saturation 94.2 % (95-100); ABG PCO2 36.2 MM HG (35-48); ABG PH 7.296 (7.35-7.45); ABG PO2 81.4 MM HG (80-95); ABG TCO2 16.9 MMOL/L (23-27)
[2017-03-28 05:32] LABS: Basophils # 0.2 10*3/uL (0.0-0.2); Basophils % 0.4 % (0.0-0.8); Eosinophils # 0.6 10*3/uL (0.0-0.87); Eosinophils % 1.2 % (0.00-10.9); Hematocrit 22.6 VOL% (42.0-52.0); Hemoglobin 7.6 GM/DL (14.0-18.0); Immature Granulocytes % 16.4 %; Immature Granulocytes Absolute 7.41 #; Lymphocytes # 2.6 10*3/uL (1.4-4.0); Lymphocytes % 5.7 % (21.2-54.2); Mean Corpuscular HGB Conc 33.6 GM/DL (32-36); Mean Corpuscular Hemoglobin 32 PG (27-34); Monocytes # 1.6 10*3/uL (0.11-0.8); Monocytes % 3.5 % (1.7-12.7); NRBC # 11.03 10*3/uL; Neutrophils # 32.8 10*3/uL (1.4-7.4); Neutrophils % 72.8 % (38.7-73.9); Platelet Count 57 T/CUMM (130-400); Red Blood Count 2.38 MC/CUMM (3.8-5.5)
[2017-03-28 05:34] LABS: INR 1.6; PT Patient Result 16.3 SECS
[2017-03-28 05:35] LABS: Mean Platelet Volume 12.9 FL (9.6-12.0)
[2017-03-28 05:36] LABS: White Blood Count 45.1 T/CUMM (4-12)
[2017-03-28] MEDS ORDERED: LEVOFLOXACIN INJ 500 MG in PREMIX 1 EACH IV SCH (06:00)
[2017-03-28 06:02] LABS: Band Neutrophils 14 % (0-10); Eosinophils 4 % (0-10); Lymphocytes 7 % (20-55); Metamyelocytes 2 %; Myelocytes 3 %; Nucleated Red Blood Cells 33 (0-5); Segmented Neutrophils 66 % (50-85); Total Cells Counted 100
[2017-03-28 06:03] LABS: Burr Cells Slight; Giant Platelets Few; Hypochromasia 1+; Macrocytosis Slight; Platelet Estimate Decreased; Polychromasia Slight
[2017-03-28 06:10] LABS: Calcium 6.6 MG/DL (8.5-10.1); Magnesium 2.4 MG/DL (1.8-2.4); Osmolality,Calculated 298.4 MOS/KG (273-304)
[2017-03-28 06:14] LABS: Albumin 2.1 G/DL (3.4-5.0); Bilirubin,Direct 20.86 MG/DL (0.0-0.20); Bilirubin,Indirect 5.3 MG/DL (0.0-1.0); Total Protein 4.2 G/DL (6.4-8.3)
[2017-03-28 06:22] LABS: Bilirubin,Total 26.2 MG/DL (0.2-1.0)
[2017-03-28] MEDS: AMIODARONE INJ 450 MG in DEXTROSE 5% 241 ML IV SCH ×3 (06:34→22:01)
[2017-03-28] MEDS ORDERED: INFLUENZA VIRUS VACCINE 0.5 ML SYRINGE IM ONE (09:00)
[2017-03-28] MEDS: DIVALPROEX 500 MG TABLET PO SCH ×2 (09:14→20:06)
[2017-03-28] MEDS: PANTOPRAZOLE 40 MG VIAL IV SCH ×2 (09:31→21:22)
[2017-03-28] MEDS: THIAMINE 200 MG/2 ML VIAL IV SCH (09:31)
[2017-03-28] MEDS: NOREPINEPHRINE 8 MG in SODIUM CHLORIDE 0.9% 242 ML IV SCH ×4 (10:52→23:21)
[2017-03-28] MEDS ORDERED: INSULIN LISPRO 100 UNIT/ML SUBCUT SCH (12:00)
[2017-03-28] MEDS: INSULIN LISPRO 100 UNIT/ML SUBCUT SCH ×4 (12:57→23:45)
[2017-03-28] MEDS: DEXTROSE 50% 25 GM/50 ML VIAL IV PRN ×2 (15:48→16:35)
[2017-03-28] MEDS ORDERED: DEXTROSE 50% 25 GM/50 ML VIAL IV ONE (17:39)
[2017-03-28] MEDS ORDERED: DEXTROSE 10% 1,000 ML IV SCH (18:00)
[2017-03-28] MEDS ORDERED: VANCOMYCIN INJ 1,250 MG in SODIUM CHLORIDE 0.9% 250 ML IV ONE (18:00)
[2017-03-28] MEDS: NOREPINEPHRINE 16 MG in SODIUM CHLORIDE 0.9% 234 ML IV SCH (22:00)
[2017-03-28] MEDS: MULTIVITAMIN INJ 10 ML in SODIUM CHLORIDE 0.45% 1,000 ML IV SCH (22:13)
[2017-03-28 23:47] LABS: ABG Base Excess -23.6 MMOL/L (-2.5-2.5); ABG Oxygen Saturation 83.5 % (95-100); ABG PCO2 39.6 MM HG (35-48); ABG PO2 75.9 MM HG (80-95); Pt O2 Delivery Device Ventilator
[2017-03-28 23:52] LABS: ABG PH 6.889 (7.35-7.45)
[2017-03-29] MEDS: DEXTROSE 50% 25 GM/50 ML VIAL IV PRN ×4 (00:05→02:22)
[2017-03-29] MEDS ORDERED: SODIUM BICARBONATE 50 MEQ/50 ML SYRINGE IV ONE ×8 (00:09→03:41)
[2017-03-29] MEDS ORDERED: CALCIUM CHLORIDE 1,000 MG/10 ML SYRINGE IV ONE ×3 (00:18→00:36)
[2017-03-29] MEDS ORDERED: SODIUM POLYSTYRENE SULFATE 15 GM/60 ML BOTTLE PO ONE (00:26)
[2017-03-29] MEDS ORDERED: ALBUTEROL NEB SOLN 5 MG/ML 20 ML/BOTTLE CONT NEB ONE (00:26)
[2017-03-29] MEDS: SODIUM BICARB INJ 100 MEQ in DEXTROSE 5% NACL 0.22% 1,000 ML IV SCH (00:31)
[2017-03-29 00:41] LABS: Albumin 1.7 G/DL (3.4-5.0); Calcium 7.8 MG/DL (8.5-10.1); Osmolality,Calculated 276.9 MOS/KG (273-304); Total Protein 4.3 G/DL (6.4-8.3)
[2017-03-29 00:44] LABS: Bilirubin,Total 22.8 MG/DL (0.2-1.0); Potassium 6.6 MMOL/L (3.5-5.1)
[2017-03-29] MEDS ORDERED: ALBUMIN 25% 50 GM in PREMIX 1 EACH IV ONE (00:46)
[2017-03-29 01:14] LABS: ABG Base Excess -22.2 MMOL/L (-2.5-2.5); ABG HCO3 8.5 MMOL/L (20-26); ABG Oxygen Saturation 90.5 % (95-100); ABG PCO2 41.6 MM HG (35-48); ABG PO2 87.5 MM HG (80-95); ABG TCO2 9.8 MMOL/L (23-27)
[2017-03-29 01:20] LABS: ABG PH 6.929 (7.35-7.45)
[2017-03-29] MEDS: PIPERACILLIN/TAZOBACTAM 3.375 MG in SODIUM CHLORIDE 0.9% 100 ML IV SCH (01:43)
[2017-03-29] MEDS: AMIODARONE INJ 450 MG in DEXTROSE 5% 241 ML IV SCH (02:24)
[2017-03-29] MEDS: NOREPINEPHRINE 16 MG in SODIUM CHLORIDE 0.9% 234 ML IV SCH ×2 (03:31→07:29)
[2017-03-29] MEDS: NOREPINEPHRINE 8 MG in SODIUM CHLORIDE 0.9% 242 ML IV SCH (03:31)
[2017-03-29] MEDS: INSULIN LISPRO 100 UNIT/ML SUBCUT SCH (03:52)
[2017-03-29 03:54] LABS: Basophils # 0.4 10*3/uL (0.0-0.2); Basophils % 0.8 % (0.0-0.8); Eosinophils # 0.4 10*3/uL (0.0-0.87); Eosinophils % 0.9 % (0.00-10.9); Hematocrit 20.6 VOL% (42.0-52.0); Hemoglobin 6.2 GM/DL (14.0-18.0); Immature Granulocytes % 15.6 %; Immature Granulocytes Absolute 7.16 #; Lymphocytes # 9.1 10*3/uL (1.4-4.0); Lymphocytes % 19.8 % (21.2-54.2); Mean Corpuscular HGB Conc 30.1 GM/DL (32-36); Mean Corpuscular Hemoglobin 32 PG (27-34); Mean Corpuscular Volume 106.2 FL (87-102); Mean Platelet Volume 13.3 FL (9.6-12.0); Monocytes % 2.3 % (1.7-12.7); NRBC # 9.64 10*3/uL; Neutrophils % 60.6 % (38.7-73.9); Platelet Count 31 T/CUMM (130-400); Red Blood Count 1.94 MC/CUMM (3.8-5.5); Red Cell Distribution Width 20.8 % (9.3-17.3)
[2017-03-29 04:08] LABS: ABG Base Excess -24.1 MMOL/L (-2.5-2.5); ABG HCO3 6.6 MMOL/L (20-26); ABG Oxygen Saturation 80.6 % (95-100); ABG PCO2 45.7 MM HG (35-48); ABG PO2 73.9 MM HG (80-95); ABG TCO2 8.3 MMOL/L (23-27)
[2017-03-29 04:10] LABS: ABG PH 6.834 (7.35-7.45)
[2017-03-29 04:13] LABS: INR 4.3
[2017-03-29 04:43] LABS: PT Patient Result 43.4 SECS; Partial Thromboplastin Time 88.1 SECS (0-40)
[2017-03-29 04:45] LABS: Albumin 1.7 G/DL (3.4-5.0); Calcium 8.3 MG/DL (8.5-10.1); Osmolality,Calculated 287.7 MOS/KG (273-304); Total Protein 4.2 G/DL (6.4-8.3)
[2017-03-29 04:48] LABS: Bilirubin,Total 20.3 MG/DL (0.2-1.0)
[2017-03-29 04:49] LABS: Potassium 6.9 MMOL/L (3.5-5.1)
[2017-03-29 05:37] LABS: Band Neutrophils 4 % (0-10); Eosinophils 2 % (0-10); Lymphocytes 22 % (20-55); Metamyelocytes 4 %; Myelocytes 4 %; Nucleated Red Blood Cells 19 (0-5); Promyelocytes 1 %; Segmented Neutrophils 61 % (50-85); Total Cells Counted 100
[2017-03-29 05:38] LABS: Atypical Lymphocytes Few; Burr Cells Slight; Hypochromasia 1+; Macrocytosis 1+
[2017-03-29 05:39] LABS: Platelet Estimate Decreased
[2017-03-29] MEDS: PHENYLEPHRINE INJ 160 MG in SODIUM CHLORIDE 0.9% 234 ML IV SCH ×2 (05:42→07:11)
[2017-03-29] MEDS ORDERED: DEXTROSE 50% 25 GM/50 ML VIAL IV ONE (06:48)
[2017-03-29] MEDS ORDERED: INSULIN REGULAR 100 UNIT/ML IV ONE (06:49)
[2017-03-29 10:11] VITALS: BP 60/20
== END 2017-03-29 07:32 | disposition expired | DRG 438 ==
LOC: EDUNIT# → EDBD → N.ED 15:01 → N.EDINP 18:11 → N.3E 20:23 → N.ICU 03-22 09:53